=== PATIENT | female | born 1980 | race Two or more races ===

== ENCOUNTER 2016-09-06 10:01 | Emergency (ER) | payer BC, OTHER ==
[2016-09-06 10:06] VITALS: BMI 30.2
[2016-09-06] MEDS ORDERED: LORAZEPAM CARPU-JECT 2 MG/ML DISP.SYRIN IVPUSH ONE ×2 (10:45→11:05)
[2016-09-06] MEDS ORDERED: FOLIC ACID INJECTION - 1 MG, THIAMINE HCL 100 MG, MULTIVIT INJECTION ADULT 10 ML in SOD... IVPB ONE (10:45)
[2016-09-06] MEDS ORDERED: LORAZEPAM CARPU-JECT 2 MG/ML DISP.SYRIN ONE (11:15)
--- NOTE | 2016-09-06 12:11 | PDOC ---
History of Present Illness - General Chief Complaint: Alcohol intoxication Stated Complaint: DETOX Time Seen by Provider: 09/06/16 10:27 History Source: Patient, Spouse - History of Present Illness Initial Comments: 09/06/16 12:25 36-year-old female presents to the emergency room with complaints of alcohol which are all including generalized body shakes and irritability. Patient states for the past 2 years has been drinking approximately 10-15 shots of vodka on a daily basis to the point now that she is not able to function at work and chooses to drink versus eat. Patient also states history of anxiety and takes Prozac on a daily basis. Patient denies other drug use and denies any homicidal or suicidal ideation. Patient does state history of epilepsy but is on no medication and states for the past 2 years seizures have increased secondary to alcohol abuse n medication for withdrawals. Timing/Duration: getting worse Severity: moderate Associated Symptoms: reports: loss of appetite, seizure, weakness Past History - Past Medical History Allergies/Adverse Reactions: Allergies Allergy/AdvReac Type Severity Reaction Status Date / Time amoxicillin [Amoxicillin] AdvReac Mild Verified 09/06/16 10:07 Penicillins AdvReac Mild Verified 09/06/16 10:07 Home Medications: Ambulatory Orders Fluoxetine HCl [Prozac -] 40 mg PO DAILY 09/26/15 Albuterol Sulfate Inhaler - [Ventolin Hfa Inhaler -] 2 inh PO Q4H PRN #1 inh 03/09 Asthma: Yes Cancer: Yes (CERVICAL) COPD: Yes Psychiatric Problems: Yes (anxiety) - Surgical History Abdominal Surgery: Yes (HERNIA) - Immunization History Immunization Up to Date: Yes - Psycho/Social/Smoking Cessation Hx Anxiety: Yes Suicidal Ideation: No Smoking Status: Yes Smoking History: Current every day smoker Have you smoked in the past 12 months: Yes Number of Cigarettes Smoked Daily: 20 Information on smoking cessation initiated: No 'Breaking Loose' booklet given: 07/26/15 Hx Alcohol Use: Yes Drug/Substance Use Hx: Yes Substance Use Type: Alcohol, Prescribed Hx Substance Use Treatment: No Patient Lives Alone: No Lives with/in: spouse/SO Review of Systems - Review of Systems Able to Perform ROS?: Yes Constitutional: Yes: Loss of Appetite, Weakness HEENTM: No: Symptoms Reported Respiratory: No: Symptoms reported Cardiac (ROS): No: Symptoms Reported ABD/GI: Yes: Poor Appetite, Poor Fluid Intake : No: Symptoms Reported Musculoskeletal: Yes: Muscle Weakness Integumentary: No: Symptoms Reported Neurological: Yes: Tremors Endocrine: No: Symptoms Reported Hematologic/Lymphatic: No: Symptoms Reported *Physical Exam - Vital Signs Last Vital Signs Temp Pulse Resp BP Pulse Ox 98 F 74 20 117/82 97 09/06/16 10:03 09/06/16 11:10 09/06/16 11:10 09/06/16 11:10 09/06/16 11:10 - Physical Exam General Appearance: Yes: Nourished, Appropriately Dressed, Alcohol on Breath. No: Intoxicated HEENT: positive: EOMI, HELEN, TMs Normal, Pharynx Normal Neck: positive: Supple Respiratory/Chest: positive: Lungs Clear, Normal Breath Sounds. negative: Respiratory Distress, Accessory Muscle Use Cardiovascular: positive: Regular Rhythm, Regular Rate. negative: Murmur Gastrointestinal/Abdominal: positive: Soft. negative: Tenderness Integumentary: positive: Normal Color, Warm, Moist Neurologic: positive: Motor Strength 5/5 ( ambulatory). negative: Normal Mood/ Affect (anxious) Heart Score/ECG Review - ECG Intrepretation Rhythm: Regular Rhythm (76 normal sinus. No acute findings.) ED Treatment Course - LABORATORY CBC & Chemistry Diagram: 09/06/16 11:07 09/06/16 11:07 - Medications Given in the ED: ED Medications Discontinued Medications Generic Name Dose Route Start Last Admin Trade Name Freq PRN Reason Stop Dose Admin Folic Acid 1 mg/ Thiamine HCl 1,000 mls @ 1,000 mls/hr 09/06/16 10:45 09/06/16 11:45 100 mg/ Multivitamins/Minerals IVPB 09/06/16 11:44 1,000 mls/hr 10 ml/ Sodium Chloride ONCE ONE Administration Lorazepam 0.5 mg 09/06/16 10:45 09/06/16 11:20 Ativan Injection - IVPUSH 09/06/16 10:46 Not Given ONCE ONE Lorazepam 2 mg 09/06/16 11:05 09/06/16 11:07 Ativan Injection - IVPUSH 09/06/16 11:06 2 mg ONCE ONE Administration Medical Decision Making - Medical Decision Making 09/06/16 11:33 [facility] on-call detox for alcohol abuse the past 2 years. Patient states it never went to rehabilitation but states his drinking approximately 10-15 shots of vodka daily and is now causing her to not function including work and eating. Fianc states patient has had more frequent seizures over the past 2 years and prior to that had no seizures for approximately 6 years. Patient states was going to go to [facility] tomorrow but due to the tremors and irritability he decided come to the ER. Patient with normal vital signs with no asterixis noted. Patient ordered for labs, Ativan, banana bag and urine including drug toxicology 09/06/16 12:34 Called by a nurse to evaluate patient was having foaming at the mouth with eye rolling. Patient was not found to be rigid or generalized tremors. Patient ordered for 2 mg of Ativan. Vital signs stable. Suction at bedside. Fianc at bedside. 09/06/16 14:00 Laboratory Tests 09/06/16 09/06/16 09/06/16 11:07 11:07 11:07 WBC 10.5 H Hgb 14.1 Hct 43.8 Plt Count 331 Neutrophils % 74.1 D Sodium 143 Potassium 3.9 Chloride 104 Carbon Dioxide 25 Anion Gap 14 BUN 11 D Creatinine 0.7 Creat Clearance w eGFR > 60 Random Glucose 80 D Calcium 9.2 Magnesium 2.2 Total Bilirubin 0.2 D AST 59 H D ALT 50 D Urine Ketones Negative Urine Nitrite Negative Urine HCG, Qual Negative Cocaine Screen Alcohol, Quantitative 09/06/16 09/06/16 11:07 11:07 WBC Hgb Hct Plt Count Neutrophils % Sodium Potassium Chloride Carbon Dioxide Anion Gap BUN Creatinine Creat Clearance w eGFR Random Glucose Calcium Magnesium Total Bilirubin AST ALT Urine Ketones Urine Nitrite Urine HCG, Qual Cocaine Screen Negative Alcohol, Quantitative 290.2 H* 09/06/16 14:01 Selected Entries 09/06/16 11:10 Pulse Rate [ 74 Left Radial] Respiratory 20 Rate Blood Pressure 117/82 [Left Arm] O2 Sat by Pulse 97 Oximetry (%) Case discussed with Dr. Favian kruger at detox and accepted patient. patient currently groggy and responsive to stimuli repeat vital stable. 09/06/16 16:14 Selected Entries 09/06/16 15:44 Pulse Rate [ 105 H Left Radial] Respiratory 16 Rate Blood Pressure 108/70 [Left Arm] O2 Sat by Pulse 99 Oximetry (%) Patient alert and conversive with fiance at bedside and is ready to go to [facility]. *DC/Admit/Observation/Transfer Diagnosis at time of Disposition: Alcohol intoxication, Alcohol abuse, Seizure - Discharge Dispostion Disposition: I.P. ALCOHOL/SUBS ABUSE REHAB Condition at time of disposition: Good - Patient Instructions Printed Discharge Instructions: DI for Alcohol Abuse Additional Instructions: Please follow recommendations of the program and utilize all resources available to you.
[2016-09-06 12:35] LABS: BASOPHIL 0.9 % (0-2.0); EOSINOPHIL 1.8 % (0-4.5); MCH 29.9 pg (25.7-33.7); MCHC 32.3 g/dl (32.0-36.0); MEAN CELL VOLUME 92.5 fl (80-96); MEAN PLT VOLUME 8.6 fl (7.5-11.1); NEUTROPHILS 74.1 % (42.8-82.8); PLATELET COUNT 331 K/MM3 (134-434); WHITE BLOOD COUNT 10.5 K/mm3 (4.0-10.0)
[2016-09-06 12:40] LABS: URINE APPEARANCE CLEAR; URINE BILIRUBIN NEGATIVE (NEGATIVE); URINE BLOOD NEGATIVE (NEGATIVE); URINE COLOR COLORLESS; URINE GLUCOSE (UA) NEGATIVE (NEGATIVE); URINE KETONE NEGATIVE (NEGATIVE); URINE LEUK ESTERASE NEGATIVE (NEGATIVE); URINE NITRITE NEGATIVE (NEGATIVE); URINE PROTEIN NEGATIVE (NEGATIVE); URINE UROBILINOGEN NEGATIVE E.U./dl (0.2-1.0)
[2016-09-06 13:01] LABS: ALBUMIN 4.2 g/dl (3.4-5.0); ALK PHOS 74 U/L (45-117); ANION GAP 14 (8-16); BILIRUBIN,TOTAL 0.2 mg/dL (0.2-1.0); CALCIUM 9.2 mg/dL (8.5-10.1); CO2 25 mmol/L (21-32); COCKROFT - GAULT 109.2335; CREATININE 0.7 mg/dL (0.55-1.02); GLUCOSE,RANDOM 80 mg/dL (74-106); MAGNESIUM 2.2 mg/dL (1.8-2.4); SGOT/AST 59 U/L (15-37); SGPT/ALT 50 U/L (12-78); TOT PROT 8.1 g/dl (6.4-8.2)
[2016-09-06 13:22] LABS: URINE MARIJUANA THC NEGATIVE ng/ml (CUTOFF=50)
[2016-09-06 16:28] VITALS: BP 114/93; PULSE 78; TEMP 98.6
--- NOTE | 2016-09-06 17:06 | EKG ---
Test Reason : Blood Pressure : / mmHG Vent. Rate : 078 BPM Atrial Rate : 078 BPM P-R Int : 124 ms QRS Dur : 084 ms QT Int : 412 ms P-R-T Axes : 050 064 042 degrees QTc Int : 469 ms NORMAL SINUS RHYTHM NORMAL ECG WHEN COMPARED WITH ECG OF 26-SEP-2015 20:49, NO SIGNIFICANT CHANGE WAS FOUND Confirmed by SERGIO QUIJANO MD ([id number]) on 09/06/2016 5:05:50 PM Referred By: Confirmed By:SERGIO QUIJANO MD
== END 2016-09-06 16:29 | disposition other institution (70) ==
LOC: JER 10:01
PROC: 3E033GC Introduction of Other Therapeutic Substance into Peripheral Vein, Percutaneous Approach (ICD-10-PCS; principal; 2016-09-06)
PROC: 3E033NZ Introduction of Analgesics, Hypnotics, Sedatives into Peripheral Vein, Percutaneous Approach (ICD-10-PCS; 2016-09-06)
DX: F10.220 Alcohol dependence with intoxication, uncomplicated (principal); G40.509 Epileptic seizures related to external causes, not intractable, without status epilepticus; F41.9 Anxiety disorder, unspecified; J44.9 Chronic obstructive pulmonary disease, unspecified; F17.210 Nicotine dependence, cigarettes, uncomplicated; Z85.41 Personal history of malignant neoplasm of cervix uteri; Y90.8 Blood alcohol level of 240 mg/100 ml or more
CPT/HCPCS: 36415; 80053; 80307; 81003; 83735; 84703; 85025; 93005; 93010; 99284-25

== ENCOUNTER 2016-09-06 18:40 | Inpatient (IN) | payer OTHER ==
[2016-09-06 19:00] VITALS: BMI 29.8
--- NOTE | 2016-09-06 19:20 | HP ---
CIWA Score - CIWA Score Nausea/Vomitin-Mild Nausea/No Vomiting Muscle Tremors: 4-Moderate,w/Arms Extend Anxiety: 4-Mod. Anxious/Guarded Agitation: 4-Moderately Restless Paroxysmal Sweats: 1-Minimal Palms Moist Orientation: 0-Oriented Tacttile Disturbances: 0-None Auditory Disturbances: 0-None Visual Disturbances: 0-None Headache: 1-Very Mild CIWA-Ar Total Score: 15 Admission ROS [facility] - HPI Chief Complaint: WITHDRAWAL SX Allergies/Adverse Reactions: Allergies Allergy/AdvReac Type Severity Reaction Status Date / Time amoxicillin [Amoxicillin] AdvReac Mild Verified 09/06/16 19:10 Penicillins AdvReac Mild Verified 09/06/16 19:10 History of Present Illness: 36 YEARS OLD FEMALE WITH LONG HISTORY OF ALCOHOL NICOTINE DEPENDENCE HAS ASTHMA ALCOHOL WITHDRAWAL RELATED SEIZURE DEPRESSION IS ADMITTED TO DETOX Exam Limitations: No Limitations - Ebola screening Have you traveled outside of the country in the last 21 days: No Have you had contact with anyone from an Ebola affected area: No Have you been sick,other than usual withdrawal symptoms: No Do you have a fever: No - Review of Systems Constitutional: Chills, Changes in sleep, Weight Stable EENT: reports: No Symptoms Reported Respiratory: reports: Cough Cardiac: reports: No Symptoms Reported GI: reports: Nausea, Poor Fluid Intake, Abdominal cramping : reports: No Symptoms Reported Musculoskeletal: reports: No Symptoms Reported Integumentary: reports: No Symptoms Reported Neuro: reports: Seizure (FIRST EPISODE 2006 LAST EPISODE 09/06/16 TREATED AT ER REFERRED TO [facility]), Tremors Endocrine: reports: No Symptoms Reported Hematology: reports: No Symptoms Reported Psychiatric: reports: Judgement Intact, Orientated x3, Depressed Other Systems: Reviewed and Negative Patient History - Patient Medical History Hx Anemia: No Hx Asthma: Yes Hx Chronic Obstructive Pulmonary Disease (COPD): Yes Hx Cancer: Yes (CERVICAL 2006 2012 ) Hx Cardiac Disorders: No Hx Congestive Heart Failure: No Hx Hypertension: No Hx Pacemaker: No HX Cerebrovascular Accident: No Hx Seizures: Yes (09/06/16) Hx Dementia: No Hx Diabetes: No Hx Gastrointestinal Disorders: No Hx Liver Disease: No Hx Genitourinary Disorders: No Hx Sexually Transmitted Disorders: No Hx Renal Disease (ESRD): No Hx Thyroid Disease: No Hx Human Immunodeficiency Virus (HIV): No Hx Hepatitis C: No Hx Depression: Yes Hx Suicide Attempt: No Hx Bipolar Disorder: No Hx Schizophrenia: No - Patient Surgical History Past Surgical History: Yes Hx Neurologic Surgery: No Hx Cataract Extraction: No Hx Cardiac Surgery: No Hx Lung Surgery: No Hx Breast Surgery: No Hx Breast Biopsy: No Hx Abdominal Surgery: Yes ([id number]) Hx Appendectomy: No Hx Cholecystectomy: No Hx Genitourinary Surgery: No Hx Section: No Hx Orthopedic Surgery: No Hx Hysterectomy: No Other Surgical History: btl, cone surgery Anesthesia Reaction: No - PPD History Previous Implant?: Yes Documented Results: Negative w/o proof Implanted On Prior [facility] Admission?: No PPD to be Administered?: Yes - Reproductive History Patient is a Female of Child Bearing Age (11 -55 yrs old): Yes Last Menstrual Period: 08/26/16 Patient : No - Smoking Cessation Smoking history: Current every day smoker Have you smoked in the past 12 months: Yes Aproximately how many cigarettes per day: 20 Cigars Per Day: 0 Hx Chewing Tobacco Use: No Initiated information on smoking cessation: Yes 'Breaking Loose' booklet given: 09/06/16 - Substance & Tx. History Hx Alcohol Use: Yes Hx Substance Use: No Substance Use Type: Alcohol Hx Substance Use Treatment: Yes - Substances Abused Alcohol Route: Oral Frequency: Daily Amount used: 30 OZ VOLKA Age of first use: 34 Date of Last Use: 09/06/16 Family Disease History - Family Disease History Family Disease History: Diabetes: Mother (NO CONTACT), Heart Disease: Father ( ), Mother, Respiratory: Mother, Sister, Other: Father, Mother, Brother ( NO CONTACT) Admission Physical Exam [facility] - Physical General Appearance: Yes: Appropriately Dressed, Moderate Distress, Alcohol on Breath, Intoxicated (TREATED AT [facility] 09/06/16), Tremorous, Irritable, Sweating HEENTM: Yes: Hearing grossly Normal, Normal ENT Inspection, Normocephalic, Normal Voice Respiratory: Yes: Chest Non-Tender, No Respiratory Distress, No Accessory Muscle Use, Wheezing Neck: Yes: Supple, Trachea in good position Breast: Yes: Breasts Symetrical Cardiology: Yes: Regular Rhythm, S1, S2, Tachycardia Abdominal: Yes: Non Tender, Soft Genitourinary: Yes: Within Normal Limits Back: Yes: Normal Inspection Musculoskeletal: Yes: full range of Motion, Gait Steady Extremities: Yes: Normal Range of Motion, Non-Tender, Tremors Neurological: Yes: Fully Oriented, Alert, Motor Strength 5/5, Normal Response, Depressed Affect Integumentary: Yes: Warm Lymphatic: Yes: Within Normal Limits - Diagnostic (1) Asthma Current Visit: Yes Status: Chronic Qualifiers: Asthma severity: mild persistent Asthma complication type: with status asthmaticus Qualified Code(s): J45.32 - Mild persistent asthma with status asthmaticus (2) Seizure Current Visit: Yes Status: Inactive Comment: ALCOHOL WITHDRAWAL RELATED LAST EPISODE 09/06/16 (3) Alcohol dependence with uncomplicated withdrawal Current Visit: Yes Status: Acute (4) Nicotine dependence Current Visit: Yes Status: Acute Qualifiers: Nicotine product type: cigarettes Substance use status: in withdrawal Qualified Code(s): F17.213 - Nicotine dependence, cigarettes, with withdrawal (5) COPD (chronic obstructive pulmonary disease) Current Visit: Yes Status: Chronic Qualifiers: COPD type: emphysema Emphysema type: other Qualified Code(s): J43.8 - Other emphysema (6) Cervical cancer Current Visit: Yes Status: Resolved Qualifiers: Malignant neoplasm of cervix location: unspecified location Qualified Code(s): C53.9 - Malignant neoplasm of cervix uteri, unspecified Comment: 2013 Cleared for Admission S - Detox or Rehab [facility] Level of Care: Medically Managed Detox Regimen/Protocol: Librium [facility] Breath Alcohol Content Breath Alcohol Content: 0.105 Urine Pregancy Test - Result Urine Test Results: Negative- NO Line Present Urine Drug Screen - Results Drug Screen Negative: No Urine Drug Screen Results: BZO-Benzodiazepines
[2016-09-06] MEDS ORDERED: chlordiazePOXIDE HCL 25 MG CAPSULE PO PRN (19:24)
[2016-09-06] MEDS ORDERED: chlordiazePOXIDE HCL 25 MG CAPSULE PO ONE (19:24)
[2016-09-06] MEDS ORDERED: MAGNESIUM CITRATE 300 ML BOTTLE PO PRN (19:24)
[2016-09-06] MEDS ORDERED: MAG HYDROX/AL HYDROX/SIMETH 30 ML UNIT-DOSE CUP PO PRN (19:24)
[2016-09-06] MEDS ORDERED: LOPERAMIDE HCL 2 MG CAPSULE PO PRN (19:24)
[2016-09-06] MEDS ORDERED: P-EPHED 60MG/TRIPROLIDI 2.5MG TABLET PO PRN (19:24)
[2016-09-06] MEDS ORDERED: MENTHOL/PHENOL 1 EACH UD MM PRN (19:24)
[2016-09-06] MEDS ORDERED: ACETAMINOPHEN 325 MG TABLET (FP) PO PRN (19:24)
[2016-09-06] MEDS ORDERED: diphenhydrAMINE HCL 50 MG CAPSULE PO PRN (19:24)
[2016-09-06] MEDS ORDERED: hydrOXYzine PAMOATE 50 MG CAPSULE (FP) PO PRN (19:24)
[2016-09-06] MEDS ORDERED: NICOTINE POLACRILEX 4 MG GUM BC PRN (19:24)
[2016-09-06] MEDS ORDERED: IBUPROFEN 400 MG TABLET (FP) PO PRN (19:24)
[2016-09-06] MEDS ORDERED: MAGNESIUM HYDROX 2400MG/30ML ORAL SUSPENSION 30 ML CUP PO PRN (19:24)
[2016-09-06] MEDS ORDERED: guaiFENesin/D-METHORPHAN HB 10 ML UNIT-DOSE CUPS PO PRN (19:24)
[2016-09-06] MEDS ORDERED: ALBUTEROL SO4 2.5/IPRATROPIUM 0.5 INH SOL 3 ML VIAL.NEB. NEB PRN (19:28)
[2016-09-06] MEDS ORDERED: ALBUTEROL SO4 6.7 GM HFA INHALER IH PRN (19:28)
[2016-09-06] MEDS ORDERED: THIAMINE HCL 100 MG TABLET (FP) PO SCH (22:00)
[2016-09-06] MEDS: chlordiazePOXIDE HCL 25 MG CAPSULE PO SCH (22:36)
[2016-09-06 23:32] LABS: URINE APPEARANCE CLEAR; URINE BILIRUBIN NEGATIVE (NEGATIVE); URINE BLOOD NEGATIVE (NEGATIVE); URINE COLOR LTYELLOW; URINE GLUCOSE (UA) NEGATIVE (NEGATIVE); URINE KETONE TRACE (NEGATIVE); URINE LEUK ESTERASE NEGATIVE (NEGATIVE); URINE NITRITE NEGATIVE (NEGATIVE); URINE PROTEIN NEGATIVE (NEGATIVE); URINE UROBILINOGEN NEGATIVE E.U./dl (0.2-1.0)
[2016-09-07] MEDS: chlordiazePOXIDE HCL 25 MG CAPSULE PO SCH (05:53)
[2016-09-07 06:24] VITALS: TEMP 98.2
--- NOTE | 2016-09-07 09:21 | DS ---
[facility] Detox Discharge Summary Admission Date: 09/06/16 Discharge Date: 09/07/16 - History Present History: Alcohol Dependence - Physical Exam Results Vital Signs: Vital Signs Temperature 98.2 F 09/07/16 06:24 Pulse Rate 96 H 09/07/16 06:24 Respiratory Rate 16 09/07/16 06:24 Blood Pressure 124/81 09/07/16 06:24 O2 Sat by Pulse Oximetry (%) - Treatment Hospital Course: Detox Protocol Followed - Medication Discharge Medications: Ambulatory Orders Fluoxetine HCl [Prozac -] 40 mg PO DAILY 09/26/15 Albuterol Sulfate Inhaler - [Ventolin Hfa Inhaler -] 2 inh PO Q4H PRN #1 inh 03/09 - Diagnosis (1) Alcohol dependence with uncomplicated withdrawal Current Visit: Yes Status: Chronic (2) Nicotine dependence Current Visit: Yes Status: Chronic Qualifiers: Nicotine product type: cigarettes Substance use status: in withdrawal Qualified Code(s): F17.213 - Nicotine dependence, cigarettes, with withdrawal (3) Asthma Current Visit: Yes Status: Chronic Qualifiers: Asthma severity: mild persistent Asthma complication type: with status asthmaticus Qualified Code(s): J45.32 - Mild persistent asthma with status asthmaticus (4) COPD (chronic obstructive pulmonary disease) Current Visit: Yes Status: Chronic Qualifiers: Emphysema type: unspecified Qualified Code(s): - (5) Cervical cancer Current Visit: Yes Status: Resolved Qualifiers: Malignant neoplasm of cervix location: unspecified location Qualified Code(s): C53.9 - Malignant neoplasm of cervix uteri, unspecified (6) Seizure Current Visit: Yes Status: Inactive - AMA Did Patient Leave Against Medical Advice: Yes (wants to leave early )
--- NOTE | 2016-09-07 09:51 | CONSULT ---
[facility] Psychiatric Consult - Data Date of interview: 09/07/16 Admission source: [facility] Identifying data: This is 36 years old female with no psychiatic hospitalization hisotry intoxicated with: Alcohol and Nicotine Substance Abuse History: Smoking Cessation. Smoking history: Current every day smoker. Have you smoked in the past 12 months: Yes. Aproximately how many cigarettes per day: 20. Cigars Per Day: 0. Hx Chewing Tobacco Use: No. Initiated information on smoking cessation: Yes. 'Breaking Loose' booklet given : 09/06/16. - Substance & Tx. History. Hx Alcohol Use: Yes. Hx Substance Use : No. Substance Use Type: Alcohol. Hx Substance Use Treatment: Yes. - Substances Abused. Alcohol. Route: Oral. Frequency: Daily. Amount used: 30 OZ VOLKA. Age of first use: 34. Date of Last Use: 09/06/16 Medical History: Asthma, COPD, Cervical Cancer History Psychiatric History: Patioetreprots history of depression and anxiety, reprots taking prior to admission: 'Prozac 40mg poqd Physical/Sexual Abuse/Trauma History: Denies Additional Comment: Prozac 40mg poqd Mental Status Exam - Mental Status Exam Alert and Oriented to: Person Patient Appearance: Unkempt Mood: Sad Affect: Mood Congruent Patient Behavior: Cooperative Speech Pattern: Appropriate Voice Loudness: Mildly Loud Thought Process: Goal Oriented Thought Disorder: Being Controlled Hallucinations: Denies Suicidal Ideation: Denies Homicidal Ideation: Denies Insight/Judgement: Fair Sleep: Difficulty falling asleep Appetite: Weight gain Muscle strength/Tone: Normal Gait/Station: Normal Additional Comments: 'Prozac 40mg poqd Psychiatric Findings - Problem List ([place] 1, 2,3) (1) Alcohol dependence with uncomplicated withdrawal Current Visit: Yes Status: Chronic (2) COPD (chronic obstructive pulmonary disease) Current Visit: Yes Status: Chronic Qualifiers: Emphysema type: unspecified (3) Nicotine dependence Current Visit: Yes Status: Chronic Qualifiers: Nicotine product type: cigarettes Substance use status: in withdrawal Qualified Code(s): F17.213 - Nicotine dependence, cigarettes, with withdrawal (4) Alcohol abuse Current Visit: No Status: Acute (5) Alcohol intoxication Current Visit: No Status: Acute (6) Drug-induced mood disorder Current Visit: Yes Status: Acute - Initial Treatment Plan Initial Treatment Plan: 'Prozac 40mg poqd
[2016-09-07 10:00] VITALS: BP 129/68; PULSE 86
[2016-09-07] MEDS ORDERED: PRENATAL VITAMINS W/ FOLIC ACID TABLET (FP) PO SCH (10:00)
[2016-09-07] MEDS ORDERED: NICOTINE 21 MG/24 HOURS TOPICAL PATCH TD SCH (10:00)
[2016-09-07 10:07] LABS: MCH 30.2 pg (25.7-33.7); MCHC 32.5 g/dl (32.0-36.0); MEAN CELL VOLUME 92.8 fl (80-96); MEAN PLT VOLUME 8.7 fl (7.5-11.1); PLATELET COUNT 266 K/MM3 (134-434); RDW 17.6 % (11.6-15.6); WHITE BLOOD COUNT 7.1 K/mm3 (4.0-10.0)
--- NOTE | 2016-09-07 10:25 | EKG ---
Test Reason : Blood Pressure : / mmHG Vent. Rate : 074 BPM Atrial Rate : 074 BPM P-R Int : 110 ms QRS Dur : 082 ms QT Int : 398 ms P-R-T Axes : 042 070 048 degrees QTc Int : 441 ms SINUS RHYTHM WITH SINUS ARRHYTHMIA WITH SHORT ND OTHERWISE NORMAL ECG WHEN COMPARED WITH ECG OF 06-SEP-2016 11:10, NO SIGNIFICANT CHANGE WAS FOUND Confirmed by IZZY SANDOVAL, JESSICA ([id number]) on 09/07/2016 10:25:20 AM Referred By: Yusuf Maria Confirmed By:JESSICA MAGANA MD
[2016-09-07 10:57] LABS: ALBUMIN 3.1 g/dl (3.4-5.0); ALK PHOS 57 U/L (45-117); ANION GAP 8 (8-16); BILIRUBIN,TOTAL 0.5 mg/dL (0.2-1.0); CALCIUM 8.7 mg/dL (8.5-10.1); CO2 28 mmol/L (21-32); COCKROFT - GAULT 125.6215; CREATININE 0.6 mg/dL (0.55-1.02); GLUCOSE,RANDOM 86 mg/dL (74-106); SGOT/AST 35 U/L (15-37); SGPT/ALT 34 U/L (12-78); TOT PROT 6.1 g/dl (6.4-8.2)
[2016-09-07] MEDS ORDERED: chlordiazePOXIDE HCL 25 MG CAPSULE PO SCH (23:00)
[2016-09-08] MEDS ORDERED: chlordiazePOXIDE 5 MG CAPSULE PO SCH (23:00)
[2016-09-09] MEDS ORDERED: chlordiazePOXIDE HCL 10 MG CAPSULE PO SCH (23:00)
== END 2016-09-07 10:05 | disposition left against medical advice (07) | DRG 770 ==
LOC: YASAS 18:40 → Y6N 19:20
PROVIDERS: ADMIT Internal Medicine Addiction Medicine; ATTEND Internal Medicine Addiction Medicine
PROC: HZ2ZZZZ Detoxification Services for Substance Abuse Treatment (ICD-10-PCS; principal; 2016-09-07)
DX: F10.230 Alcohol dependence with withdrawal, uncomplicated (principal); F17.210 Nicotine dependence, cigarettes, uncomplicated; F10.24 Alcohol dependence with alcohol-induced mood disorder; G40.509 Epileptic seizures related to external causes, not intractable, without status epilepticus; C53.9 Malignant neoplasm of cervix uteri, unspecified; J45.32 Mild persistent asthma with status asthmaticus; Z59.0 Homelessness
CPT/HCPCS: 36415; 80053; 81003; 85027; 86593; 93005; 93010

== ENCOUNTER 2016-11-24 23:01 | Emergency (ER) | payer BC, OTHER ==
[2016-11-24 23:13] VITALS: BP 142/85; PULSE 85; TEMP 98.2; BMI 28.1
== END 2016-11-25 02:22 | disposition left against medical advice (07) ==
LOC: JER 23:01
DX: Z53.21 Procedure and treatment not carried out due to patient leaving prior to being seen by health care provider (principal)
CPT/HCPCS: 99281-25

== ENCOUNTER 2017-01-18 15:39 | Emergency (ER) | payer BC, OTHER ==
[2017-01-18 15:53] VITALS: BP 107/65; PULSE 77; TEMP 98.8; BMI 28.1
--- NOTE | 2017-01-18 16:25 | PDOC ---
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 States has sustained pain but past few days has progressively worsened. Is able to make a fist but is very painful to flex and extend fourth and fifth digits of right hand. Occurred: reports: other (1 month) Severity: reports: moderate Pain Location: reports: upper extremity (right hand ) Modifying Factors: improves with: None Associated Symptoms (Fall): denies symptoms Past History - Travel Traveled outside of the country in the last 30 days: No Close contact w/someone who was outside of country & ill: No - Past Medical History Allergies/Adverse Reactions: Allergies Allergy/AdvReac Type Severity Reaction Status Date / Time amoxicillin [Amoxicillin] AdvReac Mild Verified 01/18/17 15:53 Penicillins AdvReac Mild Verified 01/18/17 15:53 Home Medications: Ambulatory Orders Fluoxetine HCl [Prozac -] 40 mg PO DAILY 09/26/15 Albuterol Sulfate Inhaler - [Ventolin Hfa Inhaler -] 2 inh PO Q4H PRN #1 inh 03/09 Albuterol Sulfate Inhaler - [Ventolin HFA Inhaler -] 2 puff IH Q4H PRN #1 inhaler 09/07/16 Anemia: No Asthma: Yes Cancer: Yes (CERVICAL 2006 2012 ) Cardiac Disorders: No CVA: No COPD: Yes CHF: No Dementia: No Diabetes: No GI Disorders: No Disorders: No HTN: No Kidney Stones: No Liver Disease: No Psychiatric Problems: Yes (anxiety) Seizures: Yes (09/06/16) Thyroid Disease: No - Surgical History Abdominal Surgery: Yes ([id number]) Appendectomy: No Cardiac Surgery: No Cholecystectomy: No Lung Surgery: No Neurologic Surgery: No Orthopedic Surgery: No - Reproductive History PID: No - Immunization History Immunization Up to Date: Yes - Suicide/Smoking/Psychosocial Hx Smoking Status: Yes Smoking History: Current every day smoker Have you smoked in the past 12 months: Yes Number of Cigarettes Smoked Daily: 15 Cigars Per Day: 0 Information on smoking cessation initiated: Yes 'Breaking Loose' booklet given: 01/18/17 Hx Alcohol Use: Yes (SOCIAL) Drug/Substance Use Hx: No Substance Use Type: None Hx Substance Use Treatment: Yes Trauma Specific PMHX - Complaint Specific PMHX Arthritis: No Back Injury: No Neck Injury: No Review of Systems - Review of Systems Able to Perform ROS?: Yes Is the patient limited [place] proficient: Yes Constitutional: Yes: See HPI. No: Symptoms Reported, Malaise HEENTM: Yes: See HPI. No: Symptoms Reported Musculoskeletal: Yes: Symptoms Reported, See HPI, Joint Swelling Integumentary: Yes: See HPI. No: Symptoms Reported, Bruising All Other Systems: Reviewed and Negative *Physical Exam - Vital Signs Last Vital Signs Temp Pulse Resp BP Pulse Ox 98.8 F 77 20 107/65 100 01/18/17 15:50 01/18/17 15:50 01/18/17 15:50 01/18/17 15:50 01/18/17 15:50 - Physical Exam General Appearance: Yes: Nourished, Appropriately Dressed, Apparent Distress, Mild Distress HEENT: positive: HELEN, Normal ENT Inspection, TMs Normal, Pharynx Normal Extremity: positive: Normal Capillary Refill. negative: Normal Inspection, Normal Range of Motion (did range of motion difficult to make fist, has some minor deviation to her right fifth digit at MCP where area of tenderness is. 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 Patient placed in a wrist immobilizer, instructed to elevate ice and follow up with Orth O for further evaluation *DC/Admit/Observation/Transfer Diagnosis at time of Disposition: Hand pain, right - Discharge Dispostion Disposition: HOME Condition at time of disposition: Stable Admit: No - Referrals Referrals: Marilin Nugent [Primary Care Provider] - Anton Kemp MD [Staff Physician] - - Patient Instructions Printed Discharge Instructions: DI for Hand Injury Additional Instructions: Rest, ice to area on and off for 15 minutes 4-6 times a day Avoid heavy lifting or exercise until pain and swelling is resolved or until further directed Keep area highly elevated to reduce swelling Use splints/Chente wrap as directed Followup with orthopedist in one to 2 days if not improving, if significantly improved may wait one week for followup with orthopedist May use ibuprofen 2-200 mg tablets every 6 hours as needed for pain - Post Discharge Activity Forms/Work/School Notes: Back to Work
== END 2017-01-18 17:05 | disposition home or self-care (01) ==
LOC: JERFT 15:39
DX: M79.641 Pain in right hand (principal); G40.909 Epilepsy, unspecified, not intractable, without status epilepticus; J45.909 Unspecified asthma, uncomplicated; J44.9 Chronic obstructive pulmonary disease, unspecified; F41.9 Anxiety disorder, unspecified; Z85.41 Personal history of malignant neoplasm of cervix uteri; F17.210 Nicotine dependence, cigarettes, uncomplicated; W22.8XXA Striking against or struck by other objects, initial encounter; Y93.89 Activity, other specified; Y92.89 Other specified places as the place of occurrence of the external cause; Y99.8 Other external cause status
CPT/HCPCS: 73130-TC-RT; 99281-25

== ENCOUNTER 2017-04-06 10:17 | Emergency (ER) | payer BC, OTHER ==
[2017-04-06 10:40] VITALS: BP 124/84; PULSE 79; TEMP 98; BMI 24.8
[2017-04-06] MEDS ORDERED: KETOROLAC TROMETHAMINE 60 MG/2 ML VIAL IM ONE (12:01)
[2017-04-06] MEDS ORDERED: diazePAM 5 MG TABLET PO ONE (12:01)
[2017-04-06] MEDS ORDERED: KETOROLAC TROMETHAMINE 60 MG/2 ML VIAL ONE (12:05)
[2017-04-06] MEDS ORDERED: diazePAM 5 MG TABLET ONE (12:06)
--- NOTE | 2017-04-06 12:13 | PDOC ---
History of Present Illness - General Chief Complaint: Pain Stated Complaint: BACK/NECK PAIN Time Seen by Provider: 04/06/17 11:43 History Source: Patient Exam Limitations: No Limitations - History of Present Illness Initial Comments: 04/06/17 12:11 CHIEF COMPLAINT: Left lateral neck pain and upper shoulder pain HISTORY OF PRESENT ILLNESS: Patient is an otherwise healthy 36-year-old female presents for evaluation of left lateral neck pain and left upper shoulder pain for 2 weeks. Patient denies injury, denies lifting anything heavy, reports that she woke up with the pain and Freddy has not been helping her. Patient does report not sleeping with a pillow. [ Nonradiating pain, no neurosensory deficits, no bowel or bladder difficulty incontinence or urinary retention, no saddle anesthesia, no footdrop. No history of IVDU or history of cancer. ] REVIEW OF SYSTEMS: GENERAL: Afebrile, denies any weakness RESPIRATORY: No cough, wheezing, or hemoptysis. CARDIAC: No chest pain or shortness of breath MUSCULOSKELETAL: Left lateral neck pain and shoulder pain, no spinal point tenderness SKIN : No erythema, no bruising, no deformity. GI/: Denies any abdominal pain, no urinary difficulty, incontinence or urinary retention. RECTAL: Denies any difficulty this A.m. NEUROLOGICAL: Denies any numbness or tingling. No neurosensory deficits. PHYSICAL EXAM: GENERAL: The patient is awake, alert, and fully oriented, in no acute distress. RESPIRATORY: Lungs clear bilaterally, no rhonchi wheezes or crackles CARDIAC: S1-S2 audible, no murmur rub or gallop MUSCULOSKELETAL: Pain to left lateral neck and left lateral shoulder reproducible, nonradiating, no tingling or sensory deficit. Less than 2 second cap refill, +4 popliteal and pedal pulses. GI/: Abdomen soft, nontender, nondistended. No rebound tenderness. No masses palpable. MUSCULOSKELETAL: No spinal point tenderness. Normal reflexive and no deficits to sensation or strength. RECTAL: [Deferred patient with no neurological findings] SKIN: Warm, Dry, normal turgor, no erythema, no edema no bruising. Past History - Past Medical History Allergies/Adverse Reactions: Allergies Allergy/AdvReac Type Severity Reaction Status Date / Time amoxicillin [Amoxicillin] AdvReac Mild Verified 04/06/17 10:36 Penicillins AdvReac Mild Verified 04/06/17 10:36 Home Medications: Ambulatory Orders Fluoxetine HCl [Prozac -] 40 mg PO DAILY 09/26/15 Diazepam [Valium] 5 mg PO Q8H #12 tablet MDD 3 04/06/17 Naproxen [Naprosyn -] 500 mg PO BID #14 tablet 04/06/17 Anemia: No Asthma: Yes Cancer: Yes (CERVICAL 2006 2012 ) Cardiac Disorders: No CVA: No COPD: Yes CHF: No DVT: No Dementia: No Diabetes: No GI Disorders: No Disorders: No HTN: No Kidney Stones: No Liver Disease: No Psychiatric Problems: Yes (anxiety) Seizures: Yes (09/06/16) Thyroid Disease: No - Surgical History Abdominal Surgery: Yes ([id number]) Appendectomy: No Cardiac Surgery: No Cholecystectomy: No Lung Surgery: No Neurologic Surgery: No Orthopedic Surgery: No - Reproductive History PID: No - Immunization History Immunization Up to Date: Yes - Suicide/Smoking/Psychosocial Hx Smoking Status: Yes Smoking History: Current every day smoker Have you smoked in the past 12 months: Yes Number of Cigarettes Smoked Daily: 15 Cigars Per Day: 0 Information on smoking cessation initiated: Yes 'Breaking Loose' booklet given: 04/06/17 Hx Alcohol Use: Yes (SOCIAL) Drug/Substance Use Hx: No Substance Use Type: None Hx Substance Use Treatment: Yes Trauma Specific PMHX - Complaint Specific PMHX Arthritis: No Back Injury: No Neck Injury: No *Physical Exam - Vital Signs Last Vital Signs Temp Pulse Resp BP Pulse Ox 98.0 F 79 18 124/84 100 04/06/17 10:37 04/06/17 10:37 04/06/17 10:37 04/06/17 10:37 04/06/17 10:37 Medical Decision Making - Medical Decision Making 04/06/17 12:12 A/P: Patient here for evaluation of torticollis, Toradol 60 mg and Valium 5 mg by mouth given, will reevaluate discharge 04/06/17 18:21 Patient reports relief of pain after given medication will DC patient home on Naprosyn and Valium, follow-up with orthopedics if pain persists. I discussed the physical exam findings, ancillary test results and final diagnoses with the patient. I answered all of the patient's questions. The patient was satisfied with the care received and felt comfortable with the discharge plan and treatment plan. The patient will call to arrange follow-up and will return to the Emergency Department with any new, persistent or worsening symptoms. *DC/Admit/Observation/Transfer Diagnosis at time of Disposition: Torticollis - Discharge Dispostion Disposition: HOME Condition at time of disposition: Good Admit: No - Prescriptions Prescriptions: Diazepam [Valium] 5 mg PO Q8H #12 tablet MDD 3 Naproxen [Naprosyn -] 500 mg PO BID #14 tablet - Referrals Referrals: Marilin Nugent [Primary Care Provider] - - Patient Instructions Printed Discharge Instructions: DI for Torticollis Additional Instructions: 1. Please return to the emergency department with any numbness, tingling, weakness, numbness or tingling to groin or legs, or loss of bowel or bladder function. 2. Use pain medication as ordered. 3. Please is to followup in the office of Dr. Zuluaga for evaluation within a week if no improvement. 4. Ice or heat 5. Refrain from lifting anything above 10 pounds, until pain resolved. - Post Discharge Activity Forms/Work/School Notes: Back to Work
== END 2017-04-06 13:42 | disposition home or self-care (01) ==
LOC: JERFT 10:17
PROC: 3E0233Z Introduction of Anti-inflammatory into Muscle, Percutaneous Approach (ICD-10-PCS; principal; 2017-04-06)
DX: M43.6 Torticollis (principal); F17.210 Nicotine dependence, cigarettes, uncomplicated; F41.9 Anxiety disorder, unspecified; J44.9 Chronic obstructive pulmonary disease, unspecified; Z85.41 Personal history of malignant neoplasm of cervix uteri
CPT/HCPCS: 99281-25

== ENCOUNTER 2018-03-03 22:10 | Emergency (ER) | payer BC, OTHER ==
[2018-03-03 22:15] VITALS: BP 123/81; PULSE 88; TEMP 98.7; BMI 27.0
[2018-03-03] MEDS ORDERED: DOXYCYCLINE HYCLATE 100 MG CAPSULE PO ONE ×2 (22:28→22:32)
--- NOTE | 2018-03-03 22:40 | PDOC ---
History of Present Illness - General Chief Complaint: Foreign Body (FB) Stated Complaint: FOREIGN BODY IN SKIN Time Seen by Provider: 03/03/18 22:24 History Source: Patient Exam Limitations: No Limitations - History of Present Illness Initial Comments: [place], and has animals at home. Tonight while she was showering looked down and noted a small insect on her left breast. Was a live tick, she tried to extract using tweezers and nail clippers but was unable to remove all of the insect. Came for evaluation and treatment. Occurred: reports: this evening Severity: reports: mild, moderate Pain Location: reports: chest Modifying Factors: improves with: None Loss of Consciousness: no loss of consciousness Associated Symptoms (Fall): denies symptoms Past History - Travel Traveled outside of the country in the last 30 days: No Close contact w/someone who was outside of country & ill: No - Past Medical History Allergies/Adverse Reactions: Allergies Allergy/AdvReac Type Severity Reaction Status Date / Time amoxicillin [Amoxicillin] AdvReac Mild Verified 03/03/18 22:14 Penicillins AdvReac Mild Verified 03/03/18 22:14 Home Medications: Ambulatory Orders Fluoxetine HCl [Prozac -] 40 mg PO DAILY 09/26/15 Diazepam [Valium] 5 mg PO Q8H #12 tablet MDD 3 04/06/17 Anemia: No Asthma: Yes Cancer: Yes (CERVICAL 2006 2012 ) Cardiac Disorders: No CVA: No COPD: Yes CHF: No DVT: No Dementia: No Diabetes: No GI Disorders: No Disorders: No HTN: No Kidney Stones: No Liver Disease: No Psychiatric Problems: Yes (anxiety) Seizures: Yes (09/06/16) Thyroid Disease: No - Surgical History Abdominal Surgery: Yes ([id number]) Appendectomy: No Cardiac Surgery: No Cholecystectomy: No Lung Surgery: No Neurologic Surgery: No Orthopedic Surgery: No - Reproductive History PID: No - Immunization History Immunization Up to Date: Yes - Suicide/Smoking/Psychosocial Hx Smoking Status: Yes Smoking History: Never smoked Have you smoked in the past 12 months: Yes Number of Cigarettes Smoked Daily: 15 Cigars Per Day: 0 Information on smoking cessation initiated: No 'Breaking Loose' booklet given: 04/06/17 Hx Alcohol Use: Yes (SOCIAL) Drug/Substance Use Hx: No Substance Use Type: None Hx Substance Use Treatment: Yes Trauma Specific PMHX - Complaint Specific PMHX Arthritis: No Back Injury: No Neck Injury: No Review of Systems - Review of Systems Able to Perform ROS?: Yes Is the patient limited [place] Citizen proficient: Yes Constitutional: Yes: Symptoms Reported, See HPI, Malaise Integumentary: Yes: Symptoms Reported, Other *Physical Exam - Vital Signs Last Vital Signs Temp Pulse Resp BP Pulse Ox 98.7 F 88 18 123/81 100 03/03/18 22:12 03/03/18 22:12 03/03/18 22:12 03/03/18 22:12 03/03/18 22:12 - Physical Exam General Appearance: Yes: Nourished, Appropriately Dressed, Apparent Distress, Mild Distress HEENT: positive: HELEN, Normal ENT Inspection, TMs Normal, Pharynx Normal Neck: positive: Supple. negative: Tender Respiratory/Chest: positive: Other (left breast upper inner quadrant noted fragments of insect consistent with a deer tick. No erythema, however skin is denuded from previous manipulation by patient.). negative: Chest Tender Extremity: positive: Normal Capillary Refill Integumentary: positive: Normal Color, Dry, Warm Neurologic: positive: mate first II-XII NML intact, Fully Oriented, Alert, Normal Mood/ Affect, Normal Response, Motor Strength 5/5 Procedures - Additional Procedures Additional Procedures: other (1% lidocaine with epi we'll placed under embedded fragments of insect. Able to lift remainder of tick body from wound. Cleaned and dressed with bacitracin ointment and Band-Aid. Patient tolerated well. Given 200 mg by mouth doxycycline for one-time treatment of prophylaxis for Lyme 's disease.) *DC/Admit/Observation/Transfer Diagnosis at time of Disposition: Tick bite with subsequent removal of tick - Discharge Dispostion Disposition: HOME Condition at time of disposition: Stable Decision to Admit order: No - Referrals Referrals: Marilin Nugent [Primary Care Provider] - - Patient Instructions Printed Discharge Instructions: How to Remove a Tick Additional Instructions: Keep area clean and dry, may use bacitracin ointment until wound healed You have been given doxycycline 200 mg tablet as one-time dose for treatment of potential Lyme disease from tick bite Follow-up with her PMD as needed - Post Discharge Activity Forms/Work/School Notes: Back to Work
== END 2018-03-03 22:42 | disposition home or self-care (01) ==
LOC: JERFT 22:10
DX: S20.359A Superficial foreign body of unspecified front wall of thorax, initial encounter (principal); S20.369A Insect bite (nonvenomous) of unspecified front wall of thorax, initial encounter; W57.XXXA Bitten or stung by nonvenomous insect and other nonvenomous arthropods, initial encounter; Y93.89 Activity, other specified; Y92.89 Other specified places as the place of occurrence of the external cause; Y99.8 Other external cause status; J45.909 Unspecified asthma, uncomplicated; J44.9 Chronic obstructive pulmonary disease, unspecified; F41.8 Other specified anxiety disorders; Z86.69 Personal history of other diseases of the nervous system and sense organs; Z85.41 Personal history of malignant neoplasm of cervix uteri
CPT/HCPCS: 99281-25

== ENCOUNTER 2018-07-27 01:16 | Emergency (ER) | payer BC, OTHER ==
[2018-07-27 01:36] VITALS: TEMP 98; BMI 30.2
--- NOTE | 2018-07-27 02:15 | PDOC ---
History of Present Illness - General Chief Complaint: Shortness of Breath Stated Complaint: DIFFICULTY BREATHING Time Seen by Provider: 07/27/18 02:02 History Source: Patient Exam Limitations: No Limitations - History of Present Illness Initial Comments: 07/27/18 02:03 38YOF with h/o asthma (admitted for this one year ago which was also her last steroid course, but never stayed in ICU, never intubated, triggers are UTI and aerosols), COPD (prior smoker), seizure disorder, cervical CA, BTL who p/w 2 days of fever, chills, runny nose, sore throat, dry cough, and cough-associated chest tightness. She has been using her albuterol MDI at home with minimal relief, and has taken Advil for discomfort. She denies abdominal pain, n/v/d/c, leg swelling, recent travel, etc. Past History - Past Medical History Allergies/Adverse Reactions: Allergies Allergy/AdvReac Type Severity Reaction Status Date / Time amoxicillin [Amoxicillin] AdvReac Mild Verified 03/03/18 22:14 Penicillins AdvReac Mild Verified 03/03/18 22:14 Home Medications: Ambulatory Orders Fluoxetine HCl [Prozac -] 40 mg PO DAILY 09/26/15 Diazepam [Valium] 5 mg PO Q8H #12 tablet MDD 3 04/06/17 Prednisone [Deltasone] 20 mg PO DAILY #4 tablet 07/27/18 Anemia: No Asthma: Yes Cancer: Yes (CERVICAL 2006 2012 ) Cardiac Disorders: No CVA: No COPD: Yes CHF: No DVT: No Dementia: No Diabetes: No GI Disorders: No Disorders: No HTN: No Kidney Stones: No Liver Disease: No Psychiatric Problems: Yes (anxiety) Seizures: Yes (09/06/16) Thyroid Disease: No - Surgical History Abdominal Surgery: Yes ([id number]) Appendectomy: No Cardiac Surgery: No Cholecystectomy: No Lung Surgery: No Neurologic Surgery: No Orthopedic Surgery: No - Reproductive History PID: No - Immunization History Immunization Up to Date: Yes - Suicide/Smoking/Psychosocial Hx Smoking Status: Yes Smoking History: Current every day smoker Have you smoked in the past 12 months: Yes Number of Cigarettes Smoked Daily: 0 Cigars Per Day: 0 Information on smoking cessation initiated: Yes 'Breaking Loose' booklet given: 04/06/17 Hx Alcohol Use: No Drug/Substance Use Hx: No Substance Use Type: None Hx Substance Use Treatment: Yes Respiratory Specific PMHX - Complaint Specific PMHX TB (Tuberculosis): No Review of Systems - Review of Systems Able to Perform ROS?: Yes Comments:: 07/27/18 03:09 GEN: fever, chills, no malaise, no generalized weakness, or weight change HEENT: no ear pain, sore throat, vision change, or eye pain CV: no chest pain, palpitations, lightheadedness, syncope, or edema RESP: cough, wheezing, SOB GI: no abdominal pain, nausea, vomiting, diarrhea, constipation, or white/black/ bloody stool : no dysuria, hematuria, incontinence, retention, bleeding, or discharge MSK: no neck/back pain, muscle weakness/pain, or joint swelling/pain NEURO: no headache, seizure, vertigo, numbness, tingling, or focal weakness PSYCH: no substance use, no behavior change SKIN: no jaundice, no rash ROS otherwise negative except as noted in HPI *Physical Exam - Vital Signs Last Vital Signs Temp Pulse Resp BP Pulse Ox 98 F 89 17 123/88 100 07/27/18 01:29 07/27/18 01:29 07/27/18 01:29 07/27/18 01:29 07/27/18 01:29 - Physical Exam Comments: 07/27/18 03:10 GENERAL: well-appearing, A/Ox4, no distress, answers questions appropriately HEENT: PERRLA, EOMI, moist mucous membranes NECK/BACK: no midline ttp, no spinal stepoff or deformity, no hematoma, full ROM , neck supple CARDIOVASCULAR: regular rate/rhythm, normal S1S2, no MGR, strong peripheral pulses, capillary refill <2 seconds, extremities wwp, no edema LUNGS/RESPIRATORY: occasional dry cough, no respiratory distress, mild b/l expiratory wheezes GI/ABDOMEN: symmetric [id number], normoactive BS, soft, no ttp, no midline pulsatile masses : no CVA tenderness EXTREMITIES: no muscle atrophy, no acute deformity SKIN: warm and dry, no pallor, no jaundice, no rash, no bruising, no skin breakdown, no cuts, no lesions NEUROLOGICAL: GCS 15, CN II-XII grossly intact, 5/5 strength proximally and distally, no facial droop Medical Decision Making - Medical Decision Making 07/27/18 03:07 Pt with h/o asthma p/w SOB and cough like their prior asthma exacerbation. Initial Vital Signs Temp Pulse Resp BP Pulse Ox 98 F 89 17 123/88 100 07/27/18 01:29 07/27/18 01:29 07/27/18 01:29 07/27/18 01:29 07/27/18 01:29 Exam: As noted in Physical Exam section. DDX IBNLT: asthma, viral URI, bronchitis, COPD, much less likely to be influenza or PNA, there is no concern for PTX, CHF, ACS, PE, pericarditis, pneumonitis, allergic rxn, etc. W/U ordered: CBCD CMP Mg Phos Cardiac panel Blood gas EKG CXR TX ordered: DuoNebs Decadron Albuterol MDI Patient states feeling much better, wants to go home, feels comfortable. 07/27/18 04:08 The Pt has gotten significant relief of symptoms while in the ED. Workup is not concerning for emergency-level pathology at this time. Pt states they have their normal asthma medications at home including albuterol MDI. 5 day course prednisone 20 mg sent to pharmacy. She does not require antibiotics at this time but will come back to ED for re- assessment if worse. The Pt is appropriate for discharge with close outpatient follow up. They are comfortable with this plan and will follow up with their primary care provider in 1-3 days. Specific return precautions are discussed and they will come back to the ER if necessary. *DC/Admit/Observation/Transfer Diagnosis at time of Disposition: Cough Asthma Qualifiers: Asthma severity: mild Asthma persistence: unspecified Asthma complication type : unspecified Qualified Code(s): J45.909 - Unspecified asthma, uncomplicated - Discharge Dispostion Disposition: HOME Condition at time of disposition: Stable Decision to Admit order: No - Prescriptions Prescriptions: Prednisone [Deltasone] 20 mg PO DAILY #4 tablet - Referrals Referrals: Marilin Nugent [Primary Care Provider] - - Patient Instructions Additional Instructions: You were seen in the ER for asthma exacerbation and possible upper respiratory infection. We gave you steroids and breathing treatments which helped your symptoms while you were here in the department. After our assessment, we do not believe you are having a medical emergency at this time, and we believe you are safe to go home. We are sending a prescription for prednisone to your pharmacy. Please take the whole course as prescribed, and follow up with your primary care provider(s) in the next 1-3 days. Call their clinic [facility], tell them you were seen in the ER for asthma, and tell them you need an appointment. Please come back to the ER at any time (24 hours a day) for any new or worsening symptoms, like worsened wheezing/shortness of breath that is not relieved with your home medications, new severe chest pain, loss of consciousness, etc. If you are having severe or life threatening symptoms, or symptoms that make it unsafe to drive or have someone drive you, please call 911. - Post Discharge Activity
--- NOTE | 2018-07-27 02:25 | PDOC ---
Attending Attestation - Resident Resident Name: CaterinaKadi - ED Attending Attestation I have performed the following: I have examined & evaluated the patient, The case was reviewed & discussed with the resident, I agree w/resident's findings & plan, Exceptions are as noted - HPI HPI: 07/27/18 05:36 38F pmh ashtma, sz do, cervical ca here with 2 days of f/c, cough, coryza and sob. Symptoms alleviated by advil. Pt used her inhaler once with minimal effect. no other complaints - Physicial Exam PE: 07/27/18 05:38 Well appearing, NAD, AOx3 RRR Diffuse, mild exp wheezing, normal wob, good air movement No c/c/e - Medical Decision Making 07/27/18 05:38 consider asthma exacerbation a/w uri imaging/abx not indicated significant improvement with treatment in ED rx steroids f/u pcp
[2018-07-27] MEDS ORDERED: ALBUTEROL SO4 2.5/IPRATROPIUM 0.5 INH SOL 3 ML VIAL.NEB. NEB ONE ×2 (02:40→02:55)
[2018-07-27] MEDS ORDERED: DEXAMETHASONE 4 MG TABLET (FP) PO STA ×3 (02:41→03:08)
[2018-07-27] MEDS ORDERED: ALBUTEROL SO4 8 GM HFA INHALER IH ONE (02:57)
[2018-07-27 04:23] VITALS: BP 105/69; PULSE 85
== END 2018-07-27 04:23 | disposition home or self-care (01) ==
LOC: JER 01:16
PROC: 3E0F7GC Introduction of Other Therapeutic Substance into Respiratory Tract, Via Natural or Artificial Opening (ICD-10-PCS; principal; 2018-07-27)
PROC: 3E0F7GC Introduction of Other Therapeutic Substance into Respiratory Tract, Via Natural or Artificial Opening (ICD-10-PCS; 2018-07-27)
DX: J45.901 Unspecified asthma with (acute) exacerbation (principal)
CPT/HCPCS: 99282-25

== ENCOUNTER 2018-10-03 18:09 | Emergency (ER) | payer BC, OTHER | END 2018-10-03 20:17 | disposition home or self-care (01) | LOC: JERFT 18:09 ==

== ENCOUNTER 2018-10-05 12:25 | Emergency (ER) | payer BC, OTHER | END 2018-10-05 13:47 | disposition home or self-care (01) | LOC: JERFT 12:25 ==

== ENCOUNTER 2018-10-08 19:49 | Inpatient (IN) | payer BC, OTHER ==
--- NOTE | 2018-10-08 20:53 | PDOC ---
Rapid Medical Evaluation Time Seen by Provider: 10/08/18 20:50 Medical Evaluation: Allergies Allergy/AdvReac Type Severity Reaction Status Date / Time amoxicillin [Amoxicillin] AdvReac Mild Verified 10/05/18 12:29 Penicillins AdvReac Mild Verified 10/05/18 12:29 10/08/18 20:50 This patient had brief in-person evaluation in triage cc: nausea and vomiting since taking antibiotics seen here on Monday had I & D of bartholian cyst ' PE: NAD unlabored breathing orders: This patient will proceed to the Ed for further evaluation
--- NOTE | 2018-10-08 22:00 | PDOC ---
*Physical Exam - Vital Signs Last Vital Signs Temp Pulse Resp BP Pulse Ox 98.3 F 87 18 107/87 100 10/08/18 20:52 10/08/18 20:52 10/08/18 20:52 10/08/18 20:52 10/08/18 20:52 Medical Decision Making - Medical Decision Making 10/08/18 22:00 Patient seen by the advanced practice provider under my direct supervision. Ancillary testing reviewed as necessary. I agree with plan as outlined by the advanced practice provider. *DC/Admit/Observation/Transfer Diagnosis at time of Disposition: Bartholin cyst Fever Qualifiers: Fever type: unspecified Qualified Code(s): R50.9 - Fever, unspecified - Referrals Referrals: Marilin Nugent [Primary Care Provider] - - Patient Instructions - Post Discharge Activity
--- NOTE | 2018-10-08 22:02 | PDOC ---
History of Present Illness - General Chief Complaint: Revisit,Wound Recheck Stated Complaint: NAUSEA Time Seen by Provider: 10/08/18 20:50 History Source: Patient - History of Present Illness Initial Comments: 10/08/18 22:03 38 year old female s/p bartholin cyst i&D on 10/03/18 reports that she has been having fever for the last 3 days, fever tmax 101 today and nauseous today. patient reports that cyst size increased since packing was removed. Past History - Past Medical History Allergies/Adverse Reactions: Allergies Allergy/AdvReac Type Severity Reaction Status Date / Time amoxicillin [Amoxicillin] AdvReac Mild Verified 10/08/18 20:55 Penicillins AdvReac Mild Verified 10/08/18 20:55 Home Medications: Ambulatory Orders Fluoxetine HCl [Prozac -] 60 mg PO DAILY 09/26/15 Cephalexin Monohydrate [Keflex -] 500 mg PO BID 7 Days #14 capsule 10/03/18 Ibuprofen 800 mg PO Q8H PRN #20 tablet 10/03/18 Sulfamethoxazole/Trimethoprim [Bactrim Ds -] 1 tab PO BID #14 tablet 10/03/18 acetaZOLAMIDE [Diamox -] 250 mg PO ASDIR 10/03/18 Anemia: No Asthma: Yes Cancer: Yes (CERVICAL 2006 2012 ) Cardiac Disorders: No CVA: No COPD: Yes CHF: No DVT: No Dementia: No Diabetes: No GI Disorders: No Disorders: No HTN: No Kidney Stones: No Liver Disease: No Psychiatric Problems: Yes (anxiety) Seizures: Yes (09/06/16) Thyroid Disease: No - Surgical History Abdominal Surgery: Yes ([id number]) Appendectomy: No Cardiac Surgery: No Cholecystectomy: No Lung Surgery: No Neurologic Surgery: No Orthopedic Surgery: No - Reproductive History PID: No - Immunization History Immunization Up to Date: Yes - Suicide/Smoking/Psychosocial Hx Smoking Status: Yes Smoking History: Current every day smoker Have you smoked in the past 12 months: Yes Number of Cigarettes Smoked Daily: 0 Cigars Per Day: 0 Information on smoking cessation initiated: No 'Breaking Loose' booklet given: 04/06/17 Hx Alcohol Use: No Drug/Substance Use Hx: No Substance Use Type: None Hx Substance Use Treatment: Yes Review of Systems - Review of Systems Able to Perform ROS?: Yes Is the patient limited [place] proficient: No Constitutional: Yes: Fever ABD/GI: Yes: Nausea, Vomiting, Abdominal cramping (epigastric pain) Integumentary: Yes: Other (cyst) *Physical Exam - Vital Signs Last Vital Signs Temp Pulse Resp BP Pulse Ox 98.3 F 87 18 107/87 100 10/08/18 20:52 10/08/18 20:52 10/08/18 20:52 10/08/18 20:52 10/08/18 20:52 - Physical Exam General Appearance: Yes: Appropriately Dressed Respiratory/Chest: positive: Lungs Clear, Normal Breath Sounds Cardiovascular: positive: Regular Rhythm, Regular Rate Female Pelvic Exam: positive: other (right labial edema with fluctuant mass) Gastrointestinal/Abdominal: positive: Normal Bowel Sounds, Soft Integumentary: positive: Dry, Warm Neurologic: positive: Fully Oriented, Alert ED Treatment Course - LABORATORY CBC & Chemistry Diagram: 10/08/18 22:55 10/08/18 23:30 Medical Decision Making - Medical Decision Making A: Infected bartholin cyst; fever P: blood culture CBC CMP UA 10/09/18 01:[address] Bose. will consult inpatient. patient to continue antibiotics. patient admitted to hospitalist service for further management of care. patient signed out to Dr. Saez *DC/Admit/Observation/Transfer Diagnosis at time of Disposition: Bartholin cyst, Abscess of right genital labia Fever Qualifiers: Fever type: unspecified Qualified Code(s): R50.9 - Fever, unspecified - Discharge Dispostion Decision to Admit order: Yes - Referrals - Patient Instructions - Post Discharge Activity
[2018-10-08] MEDS ORDERED: FAMOTIDINE 20 MG/50 ML IVPB 20 MG/50 ML MG IVPB ONE ×2 (22:10→22:40)
[2018-10-08] MEDS ORDERED: ONDANSETRON 4 MG/2 ML VIAL IVPUSH ONE (22:10)
[2018-10-08] MEDS ORDERED: SODIUM CHLORIDE 1,000 ML IV STA (22:10)
[2018-10-08] MEDS ORDERED: ONDANSETRON 4 MG/2 ML VIAL ONE (22:40)
[2018-10-08 23:34] LABS: VENOUS PC02 42.9 mmHg (41-51); VENOUS PH 7.32 (7.31-7.41)
[2018-10-08 23:36] LABS: VENOUS PO2 27.3 mmHg (30-40)
[2018-10-08 23:40] LABS: BASO % 0.5 % (0-2.0); EOS % 2.1 % (0-4.5); HEMOGLOBIN 13.4 GM/dL (10.7-15.3); LYMPH % 20.3 % (8-40); MCH 29.3 pg (25.7-33.7); MCHC 32.7 g/dl (32.0-36.0); MEAN CELL VOLUME 89.4 fl (80-96); MEAN PLT VOLUME 7.6 fl (7.5-11.1); MONO % 9.5 % (3.8-10.2); NEUT % 67.6 % (42.8-82.8); PLATELET COUNT 439 K/MM3 (134-434); RBC 4.58 M/mm3 (3.60-5.2); RDW 15.2 % (11.6-15.6); WHITE BLOOD COUNT 9.2 K/mm3 (4.0-10.0)
[2018-10-08 23:48] LABS: INR 1.06 (0.83-1.09); PROTHROMBIN TIME (PATIENT) 12.5 SEC (9.7-13.0)
[2018-10-08 23:51] LABS: ACTIVATED PTT 34.5 SECONDS (25.2-36.5)
[2018-10-09 00:09] LABS: BLOOD UREA NITROGEN 15.1 mg/dL (7-18); POTASSIUM 3.9 mmol/L (3.5-5.1)
[2018-10-09 00:10] LABS: ALBUMIN 3.9 g/dl (3.4-5.0); BILIRUBIN,TOTAL 0.3 mg/dL (0.2-1); CALCIUM 9.3 mg/dL (8.5-10.1); TOT PROT 8.2 g/dl (6.4-8.2)
[2018-10-09 01:19] LABS: EPI CELLS 2.2 /HPF (0-5/HPF); HYALINE CASTS 3 /lpf (0-8); URINE APPEARANCE CLEAR; URINE BILIRUBIN NEGATIVE (NEGATIVE); URINE COLOR YELLOW; URINE GLUCOSE (UA) NEGATIVE (NEGATIVE); URINE KETONE NEGATIVE (NEGATIVE); URINE LEUK ESTERASE NEGATIVE (NEGATIVE); URINE NITRITE NEGATIVE (NEGATIVE); URINE PROTEIN NEGATIVE (NEGATIVE); URINE RBC 26 /hpf (0-4); URINE UROBILINOGEN 0.2 mg/dL (0.2-1.0); URINE WBC 1 /hpf (0-5)
[2018-10-09] MEDS ORDERED: ACETAMINOPHEN 1000 MG/100 ML VIAL (NON FORMULARY) IVPB ONE (01:31)
[2018-10-09] MEDS ORDERED: ACETAMINOPHEN INJECTION 100 ML IVPB ONE (01:56)
--- NOTE | 2018-10-09 02:54 | HP ---
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 Pt presented on 10/03 with vaginal abscess which was drained and packed and started on Ab (keflex and bactrim). The pack was removed on 10/05 and patient continued AB. Pt reports poor appetite x 3 days with passage of loose stools. Pt reports a 10/01 dull epigastric abdominal pain with associated with nausea and one episode of bilous vomiting today. In the ED, fur tailor _ Dr bose was contacted, who agreed to be consulted on the case while the pt receives iv AB. Recent urine cx- grew 3 orgs- E fecalis and Staph coagulase neg 1 and 2 ( sensitive to levoflox) ED: EKG-77bpm, NSR, normal intervals/axis, no ALY/STD, QTC-470 Levaquin/metronidazole/NS/Famotidine/zofran History Source: Patient - Past Medical History Pulmonary: Yes: Asthma, COPD ...LMP: 10/06/18 ...LMP Comment: 7-9 days ...: No ...: 4 (2 arborta) ...Para: 2 (2 Alive) - Past Surgical History Past Surgical History: Yes: Hernia Repair, Tubal Ligation Additional Past Surgical History: cryotherapy and cone biopsy- cervix - Smoking History Smoking history: Current every day smoker (Smoked) Have you smoked in the past 12 months: Yes Aproximately how many cigarettes per day: 0 (Now vapes x 1year) - Alcohol/Substance Use Hx Alcohol Use: No - Social History Usual Living Arrangement: Yes: With Significant Other ADL: Independent History of Recent Travel: No Home Medications - Allergies Allergies/Adverse Reactions: Allergies Allergy/AdvReac Type Severity Reaction Status Date / Time amoxicillin [Amoxicillin] AdvReac Mild Verified 10/08/18 20:55 Penicillins AdvReac Mild Verified 10/08/18 20:55 - Home Medications Home Medications: Ambulatory Orders Fluoxetine HCl [Prozac -] 60 mg PO DAILY 09/26/15 Ibuprofen 800 mg PO Q8H PRN #20 tablet 10/03/18 acetaZOLAMIDE [Diamox -] 250 mg PO ASDIR 10/03/18 Amoxicillin/Potassium Clav [Augmentin 875-125 Tablet] 1 each PO BID #14 tablet 10/09/18 Family Disease History - Family Disease History Family Disease History: Diabetes: Mother (NO CONTACT), Heart Disease: Father ( ), Mother, Respiratory: Mother, Sister, Other: Father, Mother, Brother ( NO CONTACT) Review of Systems - Review of Systems Constitutional: reports: Chills (Tmax 101 at home), Fever Eyes: denies: Blurred Vision HENT: denies: Difficult Swallowing, Throat Pain Cardiovascular: denies: Chest Pain, Edema, Shortness of Breath Respiratory: denies: Cough Gastrointestinal: reports: Abdominal Pain, Diarrhea, Vomiting. denies: Vomiting Blood Genitourinary: reports: Other (vaginal pain) Neurological: denies: Change in LOC, Change in Speech, Confusion Hematology/Lymphatic: reports: Other (menometrorrhagia- 7-9 days bleed) Psychiatric: reports: Anxiety Physical Examination Vital Signs: Vital Signs Temperature 98.3 F 10/09/18 02:00 Pulse Rate 95 H 10/09/18 02:00 Respiratory Rate 16 10/09/18 02:00 Blood Pressure 98/56 L 10/09/18 02:00 O2 Sat by Pulse Oximetry (%) 97 10/09/18 02:00 Constitutional: Yes: Well Nourished, No Distress, Calm Eyes: Yes: Conjunctiva Clear, EOM Intact, PERRL HENT: Yes: Atraumatic Neck: Yes: Supple Cardiovascular: Yes: Regular Rate and Rhythm, S1, S2 Respiratory: Yes: CTA Bilaterally Gastrointestinal: Yes: Soft, Tenderness, Epigastrium Renal/: Yes: Vaginal Bleeding (menstrual bleed), Other (R labial swelling at ( 10-11 o'clock), 2x5cm, pink, soft-firm, no obvious pus drainage. Recent I&D site open. Scattered healed skin excoriations. Cervical speculum exam with minimal whitish discharge, closed cervical os with minimal blood oozing.) Musculoskeletal: No: Back Pain Extremities: Yes: WNL Edema: No Peripheral Pulses WNL: Yes Integumentary: Yes: Body Piercing (Tongue) Neurological: Yes: Alert, Oriented, Cran Nerves II-XII Intact. No: Aphasia, Dysarthria, Lethargy, Loss of Sensation, Unsteady Gait ...Motor Strength: WNL Psychiatric: Yes: Alert, Oriented Labs: CBC, BMP 10/08/18 22:55 10/08/18 23:30 Assessment/Plan Active Medications Fluoxetine HCl (Prozac -) 60 mg PO DAILY ATJ Lactated Ringer's (Lactated Ringers Solution) 1,000 ml in 1,000 mls @ 100 mls/ hr IV ASDIR TAJ Last Admin: 10/09/18 03:45 Dose: 100 mls/hr Levofloxacin (Levaquin 500 Mg Premixed Ivpb -) 500 mg in 100 mls @ 100 mls/hr IVPB DAILY TAJ; Protocol Clindamycin Phosphate (Cleocin 600 Mg Premix Ivpb -) 600 mg in 50 mls @ 100 mls /hr IVPB Q8H-IV TAJ; Protocol Metoclopramide HCl (Reglan Injection -) 10 mg IVPUSH Q8H PRN PRN Reason: NAUSEA AND/OR VOMITING Pantoprazole Sodium (Protonix Iv) 40 mg IVPUSH DAILY [facility] Ambulatory Orders Fluoxetine HCl [Prozac -] 60 mg PO DAILY 09/26/15 Cephalexin Monohydrate [Keflex -] 500 mg PO BID 7 Days #14 capsule 10/03/18 Ibuprofen 800 mg PO Q8H PRN #20 tablet 10/03/18 Sulfamethoxazole/Trimethoprim [Bactrim Ds -] 1 tab PO BID #14 tablet 10/03/18 acetaZOLAMIDE [Diamox -] 250 mg PO ASDIR 10/03/18 Assessment/Plan: Pt is a 38 yo F with PMHx of alcoholic seizures, Smoking hx, asthma/COPD, anxiety, ZEE-3 s/p cryotherapy and cone biopsy presenting with a 4 day hx of R labial swelling and pain and abdominal pain x 3 days and fever x 1day. #Vulvovaginal abscess: Recent abscess drain and packing, with PO antibiotics LMP-10/06/18 Pt sexually active with partner Prior hx of HPV with CIN3 No recent STI hx GC/Chlamydia, HIV Levoflox 500 daily, based on Ucx -10/03 ucx, bcx clinda 600 Q8H Tylenol Metoclopramide 10 mg Q8H Repeat EKG- QTC-470 TECHNICAL SPECIALIST CYTOGENETICS consult- Dr Bose #Abdominal pain/Diarrhea Could be antibiotic related Keflex dcd #alcoholic seizures Pt stable, no evidence of withdrawal Denies recent ingestion, monitor #Smoking hx, Pt reports transitioning to Ecigs x1 year Nicotine patch #asthma/COPD Denies recent exacerbation Intermittently uses albuterol as needed Will benefit from outpt spirometry #anxiety On duloxetine, cont QTC-470 Watch for tardive dyskinesia with concurrent metoclopramide use #ZEE-3 s/p cryotherapy and cone biopsy Hx of HPV Does not use protection HIV test, GC/Chlamydia #FEN Received 1L NS in ED Cont LR @100 Monitor lytes, replete as needed NPO Hold chemical prophylaxis for now protonix 40mg iv Medsurg Visit type - Emergency Visit Emergency Visit: Yes ED Registration Date: 10/09/18 Care time: The patient presented to the Emergency Department on the above date and was hospitalized for further evaluation of their emergent condition. - New Patient This patient is new to me today: Yes Date on this admission: 10/09/18 - Critical Care Critical Care patient: No
[2018-10-09] MEDS ORDERED: ONDANSETRON 4 MG/2 ML VIAL IVPUSH PRN (03:20)
[2018-10-09] MEDS ORDERED: LACTATED RINGERS SOLUTION 1,000 ML/1,000 ML INFUS.BAG IV SCH (03:30)
[2018-10-09] MEDS ORDERED: METOCLOPRAMIDE HCL INJECTION 10 MG/2 ML VIAL IVPUSH PRN (04:01)
--- NOTE | 2018-10-09 04:50 | PN ---
Teaching Attending Note Name of Resident: Enma Orosco ATTENDING PHYSICIAN STATEMENT I saw and evaluated the patient. I reviewed the resident's note and discussed the case with the resident. I agree with the resident's findings and plan as documented. SUBJECTIVE: Seen and examined; please refer to resident note for further historical information. Briefly, this is a 38 y/o female presenting to the Er with subjective fevers and vulvar pain. Recently had bartholin cyst I and D on 10/03 with packing removed subsequentially; was treated with abx as documented in ER notes (keflex, tmp/smx) which she has been compliant with. Her symptoms were persistent so she came to the ER. No white count or fever, not SIRS+. ER spoke with operational communication chief who will see in AM. 10 sys ROS done and negative aside from HPI PMH, PSH, FH, SH reviewed Home Medications Medication Instructions Recorded Fluoxetine HCl [Prozac -] 60 mg PO DAILY 09/26/15 Cephalexin Monohydrate [Keflex -] 500 mg PO BID 7 Days #14 capsule 10/03/18 Ibuprofen 800 mg PO Q8H PRN #20 tablet 10/03/18 Sulfamethoxazole/Trimethoprim 1 tab PO BID #14 tablet 10/03/18 [Bactrim Ds -] acetaZOLAMIDE [Diamox -] 250 mg PO ASDIR 10/03/18 OBJECTIVE: VS, labs, imaging reviewed NAD, AAO, resting comfortably in bed RRR s1/2 no mgr NC AT EOMI PERRLA Vaginal exam as documented NT ND +BS CN2-12 wnl, no fnd Normal mood, appropriate behavior. Micro reviewed; EF and 2xCoag neg staph ASSESSMENT AND PLAN: Patient presents with infected bartholin gland cyst 1) Bartholin gland cyst -IV abx with levaquin and clinda; if no improvement or subsequent fevers will have to change clinda to vancomycin and metronidazole given community acquired MRSA sn, but she appears to be stable with current tx. -Deferring rest of care to OBGYN with procedures, etc. 2) Thrombocytosis -Likely reactive, trend 3) Obesity -BMI 30; college counselor prior to DC Full Code
[2018-10-09 05:50] LABS: BASO % 0.6 % (0-2.0); LYMPH % 26.2 % (8-40); MEAN CELL VOLUME 89.1 fl (80-96)
[2018-10-09 05:57] LABS: EOS % 2.8 % (0-4.5); HEMATOCRIT 37.2 % (32.4-45.2); HEMOGLOBIN 12.2 GM/dL (10.7-15.3); MCH 29.3 pg (25.7-33.7); MCHC 32.9 g/dl (32.0-36.0); MEAN PLT VOLUME 7.4 fl (7.5-11.1); MONO % 9.3 % (3.8-10.2); NEUT % 61.1 % (42.8-82.8); PLATELET COUNT 383 K/MM3 (134-434); RBC 4.17 M/mm3 (3.60-5.2); RDW 15.2 % (11.6-15.6)
[2018-10-09 06:17] LABS: BILIRUBIN,TOTAL 0.3 mg/dL (0.2-1); BLOOD UREA NITROGEN 11.2 mg/dL (7-18); CALCIUM 8.3 mg/dL (8.5-10.1); CREATININE 0.8 mg/dL (0.55-1.3); MAGNESIUM 2.1 mg/dL (1.8-2.4); PHOSPHOROUS 2.5 mg/dL (2.5-4.9); POTASSIUM 4.1 mmol/L (3.5-5.1); TOT PROT 6.4 g/dl (6.4-8.2)
[2018-10-09 06:39] VITALS: BMI 31.8
[2018-10-09] MEDS ORDERED: NICOTINE 21 MG/24 HOURS TOPICAL PATCH TD SCH (10:00)
[2018-10-09] MEDS ORDERED: PANTOPRAZOLE SODIUM 40 MG VIAL IVPUSH SCH (10:00)
[2018-10-09] MEDS ORDERED: FLUoxetine HCL 20 MG CAPSULE (FP) PO SCH (10:00)
[2018-10-09] MEDS ORDERED: CLINDAMYCIN 600MG PREMIX IVPB 600 MG/50 ML BAG IVPB SCH (10:00)
--- NOTE | 2018-10-09 10:28 | EKG ---
Test Reason : Blood Pressure : / mmHG Vent. Rate : 076 BPM Atrial Rate : 076 BPM P-R Int : 134 ms QRS Dur : 080 ms QT Int : 406 ms P-R-T Axes : 054 066 050 degrees QTc Int : 456 ms NORMAL SINUS RHYTHM NORMAL ECG WHEN COMPARED WITH ECG OF 08-OCT-2018 22:36, NO SIGNIFICANT CHANGE WAS FOUND Confirmed by MD RAS, SANG ([id number]) on 10/09/2018 10:28:26 AM Referred By: Robert SANTOS Confirmed By:SANG MCGINNIS MD
--- NOTE | 2018-10-09 10:34 | EKG ---
Test Reason : Blood Pressure : / mmHG Vent. Rate : 077 BPM Atrial Rate : 077 BPM P-R Int : 128 ms QRS Dur : 084 ms QT Int : 416 ms P-R-T Axes : 049 066 052 degrees QTc Int : 470 ms NORMAL SINUS RHYTHM NORMAL ECG Confirmed by MD RAS, SANG ([id number]) on 10/09/2018 10:33:34 AM Referred By: Confirmed By:SANG MCGINNIS MD
--- NOTE | 2018-10-09 12:10 | PN ---
Teaching Attending Note Name of Resident: Wesley Braden ATTENDING PHYSICIAN STATEMENT I saw and evaluated the patient. I reviewed the resident's note and discussed the case with the resident. I agree with the resident's findings and plan as documented. SUBJECTIVE: No fever or chills. No HALL. minimal discomfort in R labia , no vaginal discharge or urinary sx. has her period. rpeorted nausea nad vomiting at home, no Abd pain . OBJECTIVE: NAD Cv: RRR, no MRG Lungs: CTAB Abd:soft, NT, ND , NL BS Ext: no edema or erythema : examined with team : indurated lower part of R labia majora with a small ulcer with no drainage. 1 cm lump felt under the skin in R groin , no erythema or tenderness. No LAP in groins ASSESSMENT AND PLAN: 38 y/o lady with h/o alcoholic seizures, asthma, anxiety, ZEE-3 s/p cryotherapy , previous infections in gential area ( ? infected bartholin cyst) , and recent ER visit s/p Infected R BArtholin cyst drainage, and Abx treatment who presented with N/V. 1- N/V: could be due to GI upset form the Abx. benign abd exam. Nl electrolytes. sx resolved 2- Infected R Bartholin cyst: - no signs of sepsis. has localized infection. - previous cx reviewed. E faecalis and coag neg staph - will change abx to Augmentin - PHARMACY INTAKE COORDINATOR eval pending - A1c pending - HIV neg 3- microspopic hematuria: patient has her period 4- dispo: will dc home today after PHARMACY INTAKE COORDINATOR eval , if no further w/u indicated
[2018-10-09 13:39] VITALS: BP 109/70; PULSE 85; TEMP 98
--- NOTE | 2018-10-09 17:12 | DS ---
Physical Exam: SUBJECTIVE: Patient seen and examined at bedside. Denies abdominal pelvic pain. Denies subjective fever as well. OBJECTIVE: Vital Signs Period Temp Pulse Resp BP Sys/Christopher Pulse Ox Last 24 Hr 97.7 F-98.4 F 75-95 16-20 98-109/56-87 97-100 PHYSICAL EXAM GENERAL: NAD HEAD: Normal with no signs of trauma. EYES: EOMI Scler Clear ENT: MMM NECK: Trachea midline, full range of motion, supple. LUNGS: CTAB HEART: RRR ABDOMEN: Soft NDNT : Examined with RN Annmarie as well as medical team; Enlarged R Labia majora and small nonoozing Ulcer. PSYCH: Normal mood, normal affect. SKIN: Warm, dry, normal turgor, no rashes or lesions noted. LABS Laboratory Results - last 24 hr 10/08/18 10/08/18 10/08/18 22:55 22:55 22:55 WBC 9.2 RBC 4.58 Hgb 13.4 Hct 41.0 MCV 89.4 MCH 29.3 MCHC 32.7 RDW 15.2 D Plt Count 439 H D MPV 7.6 D Absolute Neuts (auto) 6.2 Neutrophils % 67.6 Lymphocytes % 20.3 D Monocytes % 9.5 Eosinophils % 2.1 Basophils % 0.5 Nucleated RBC % 0 PT with INR 12.50 INR 1.06 PTT (Actin FS) 34.5 VBG pH 7.32 POC VBG pCO2 42.9 POC VBG pO2 27.3 L VBG HCO3 21.4 L VBG O2 Sat (Manju) 43.3 L VBG Base Excess -4.1 L Sodium Potassium Chloride Carbon Dioxide Anion Gap BUN Creatinine Est GFR (CKD-EPI)AfAm Est GFR (CKD-EPI)NonAf Random Glucose Hemoglobin A1c % Lactic Acid Calcium Phosphorus Magnesium Total Bilirubin AST ALT Alkaline Phosphatase Troponin I Total Protein Albumin Urine Color Urine Appearance Urine pH Ur Specific [place] Urine Protein Urine Glucose (UA) Urine Ketones Urine Blood Urine Nitrite Urine Bilirubin Urine Urobilinogen Ur Leukocyte Esterase Urine WBC (Auto) Urine RBC (Auto) Urine Casts (Auto) U Pathogenic Cast Auto U Epithel Cells (Auto) U Sm Round Cell (Auto) Urine Crystals (Auto) Urine Bacteria (Auto) HIV Ag/Ab Interpret HIV Genotype HIV-2 Antibody HIV-2 Antibody Conf HIV 1&2 Antibody Screen HIV 1&2 Ab Final Interp HIV P24 Antigen 10/08/18 10/08/18 10/08/18 23:30 23:30 23:30 WBC RBC Hgb Hct MCV MCH MCHC RDW Plt Count MPV Absolute Neuts (auto) Neutrophils % Lymphocytes % Monocytes % Eosinophils % Basophils % Nucleated RBC % PT with INR INR PTT (Actin FS) VBG pH POC VBG pCO2 POC VBG pO2 VBG HCO3 VBG O2 Sat (Manju) VBG Base Excess Sodium 137 Potassium 3.9 Chloride 107 Carbon Dioxide 23 Anion Gap 8 BUN 15.1 Creatinine 1.0 Est GFR (CKD-EPI)AfAm 81.61 Est GFR (CKD-EPI)NonAf 70.41 Random Glucose 91 Hemoglobin A1c % Lactic Acid 1.1 Calcium 9.3 Phosphorus Magnesium Total Bilirubin 0.3 AST 12 L ALT 14 Alkaline Phosphatase 92 Troponin I < 0.02 Total Protein 8.2 Albumin 3.9 Urine Color Urine Appearance Urine pH Ur Specific [place] Urine Protein Urine Glucose (UA) Urine Ketones Urine Blood Urine Nitrite Urine Bilirubin Urine Urobilinogen Ur Leukocyte Esterase Urine WBC (Auto) Urine RBC (Auto) Urine Casts (Auto) U Pathogenic Cast Auto U Epithel Cells (Auto) U Sm Round Cell (Auto) Urine Crystals (Auto) Urine Bacteria (Auto) HIV Ag/Ab Interpret HIV Genotype HIV-2 Antibody HIV-2 Antibody Conf HIV 1&2 Antibody Screen HIV 1&2 Ab Final [facility] HIV P24 Antigen 10/09/18 10/09/18 10/09/18 00:30 03:45 05:00 WBC RBC Hgb Hct MCV MCH MCHC RDW Plt Count MPV Absolute Neuts (auto) Neutrophils % Lymphocytes % Monocytes % Eosinophils % Basophils % Nucleated RBC % PT with INR INR PTT (Actin FS) VBG pH POC VBG pCO2 POC VBG pO2 VBG HCO3 VBG O2 Sat (Manju) VBG Base Excess Sodium Potassium Chloride Carbon Dioxide Anion Gap BUN Creatinine Est GFR (CKD-EPI)AfAm Est GFR (CKD-EPI)NonAf Random Glucose Hemoglobin A1c % Lactic Acid 0.6 Calcium Phosphorus Magnesium Total Bilirubin AST ALT Alkaline Phosphatase Troponin I Total Protein Albumin Urine Color Yellow Urine Appearance Clear Urine pH 5.0 Ur Specific [place] 1.027 Urine Protein Negative Urine Glucose (UA) Negative Urine Ketones Negative Urine Blood 2+ H Urine Nitrite Negative Urine Bilirubin Negative Urine Urobilinogen 0.2 Ur Leukocyte Esterase Negative Urine WBC (Auto) 1 Urine RBC (Auto) 26 Urine Casts (Auto) 3 U Pathogenic Cast Auto No Result Required. U Epithel Cells (Auto) 2.2 U Sm Round Cell (Auto) No Result Required. Urine Crystals (Auto) No Result Required. Urine Bacteria (Auto) 1.0 HIV Ag/Ab Interpret HIV Genotype HIV-2 Antibody HIV-2 Antibody Conf HIV 1&2 Antibody Screen Negative HIV 1&2 Ab Final Interp HIV P24 Antigen Negative 10/09/18 10/09/18 10/09/18 05:20 05:20 05:20 WBC 8.0 RBC 4.17 Hgb 12.2 Hct 37.2 MCV 89.1 MCH 29.3 MCHC 32.9 RDW 15.2 Plt Count 383 MPV 7.4 L Absolute Neuts (auto) 4.9 Neutrophils % 61.1 Lymphocytes % 26.2 D Monocytes % 9.3 Eosinophils % 2.8 Basophils % 0.6 Nucleated RBC % 0 PT with INR INR PTT (Actin FS) VBG pH POC VBG pCO2 POC VBG pO2 VBG HCO3 VBG O2 Sat (Manju) VBG Base Excess Sodium 140 Potassium 4.1 Chloride 112 H Carbon Dioxide 24 Anion Gap 4 L BUN 11.2 Creatinine 0.8 Est GFR (CKD-EPI)AfAm 106.88 Est GFR (CKD-EPI)NonAf 92.22 Random Glucose 91 Hemoglobin A1c % Lactic Acid Calcium 8.3 L Phosphorus 2.5 Magnesium 2.1 Total Bilirubin 0.3 AST 10 L ALT 12 L Alkaline Phosphatase 75 Troponin I Total Protein 6.4 Albumin 3.0 L Urine Color Urine Appearance Urine pH Ur Specific [place] Urine Protein Urine Glucose (UA) Urine Ketones Urine Blood Urine Nitrite Urine Bilirubin Urine Urobilinogen Ur Leukocyte Esterase Urine WBC (Auto) Urine RBC (Auto) Urine Casts (Auto) U Pathogenic Cast Auto U Epithel Cells (Auto) U Sm Round Cell (Auto) Urine Crystals (Auto) Urine Bacteria (Auto) HIV Ag/Ab Interpret Cancelled HIV Genotype Cancelled HIV-2 Antibody Cancelled HIV-2 Antibody Conf Cancelled HIV 1&2 Antibody Screen HIV 1&2 Ab Final Interp Cancelled HIV P24 Antigen 10/09/18 05:20 WBC RBC Hgb Hct MCV MCH MCHC RDW Plt Count MPV Absolute Neuts (auto) Neutrophils % Lymphocytes % Monocytes % Eosinophils % Basophils % Nucleated RBC % PT with INR INR PTT (Actin FS) VBG pH POC VBG pCO2 POC VBG pO2 VBG HCO3 VBG O2 Sat (Manju) VBG Base Excess Sodium Potassium Chloride Carbon Dioxide Anion Gap BUN Creatinine Est GFR (CKD-EPI)AfAm Est GFR (CKD-EPI)NonAf Random Glucose Hemoglobin A1c % 5.7 Lactic Acid Calcium Phosphorus Magnesium Total Bilirubin AST ALT Alkaline Phosphatase Troponin I Total Protein Albumin Urine Color Urine Appearance Urine pH Ur Specific [place] Urine Protein Urine Glucose (UA) Urine Ketones Urine Blood Urine Nitrite Urine Bilirubin Urine Urobilinogen Ur Leukocyte Esterase Urine WBC (Auto) Urine RBC (Auto) Urine Casts (Auto) U Pathogenic Cast Auto U Epithel Cells (Auto) U Sm Round Cell (Auto) Urine Crystals (Auto) Urine Bacteria (Auto) HIV Ag/Ab Interpret HIV Genotype HIV-2 Antibody HIV-2 Antibody Conf HIV 1&2 Antibody Screen HIV 1&2 Ab Final Interp HIV P24 Antigen HOSPITAL COURSE: Date of Admission:10/09/18 Pt is a 38 yo F with PMHx of alcoholic seizures, asthma/COPD, anxiety, 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 Pt was initially treated with Levofloxacin as well as metronidazole by the ED. Previous wound culture from ED visit on 10/03 revealed E faecalis and coag neg staph. Pt's ABx were switched to Augmentin 875 mg PO BID for a total of 7 days. LUNCHROOM SUPERVISOR was contacted who advised pt follow up this week in clinic. Date of Discharge: 10/09/18 Minutes to complete discharge: 35 Discharge Summary Reason For Visit: FEVER, CYST OF BARTHOLIN'S GLAND DUCT Condition: Improved - Instructions Diet, Activity, Other Instructions: You presented to the hospital due to nausea, vomiting, and stomach pain. You were found to have an abscess next to your vagina called Bartolin Cyst infection . please take the following antibiotic as prescribed: Augmentin 875 mg TWICE per day starting tonight for 7 days. This medication has been sent to your pharmacy. please follow up with your primary care physician within one week , if you don' t have one you can call and schedule appointment with Dr. Braden. Please follow up with the JUMPBASTING COLLAR BASTER this week. If you do not have an JUMPBASTING COLLAR BASTER, please follow up with Dr Bose. A referral has been provided for you in your discharge paperwork. Please return to the emergency department of you begin to experience increased discomfort in your pelvic area, fevers, or any other abnormal symptoms. Referrals: Shantanu Hirsch MD [Staff Physician] - Diane Bose MD [Staff Physician] - 1 Week Disposition: HOME - Home Medications Comprehensive Discharge Medication List: Ambulatory Orders Fluoxetine HCl [Prozac -] 60 mg PO DAILY 09/26/15 Ibuprofen 800 mg PO Q8H PRN #20 tablet 10/03/18 acetaZOLAMIDE [Diamox -] 250 mg PO ASDIR 10/03/18 Amoxicillin/Potassium Clav [Augmentin 875-125 Tablet] 1 each PO BID #14 tablet 10/09/18 This patient is new to me today: Yes Date on this admission: 10/09/18 Emergency Visit: Yes ED Registration Date: 10/09/18 Care time: The patient presented to the Emergency Department on the above date and was hospitalized for further evaluation of their emergent condition. Critical Care patient: No - Discharge Referral Referred to [facility] Med P.C.: No
== END 2018-10-09 16:19 | disposition home or self-care (01) | DRG 761 ==
LOC: JERFT 19:49 → JERBED 10-09 01:48 → J7W 10-09 06:21
PROVIDERS: ADMIT Internal Medicine; ATTEND Internal Medicine
DX: N75.0 Cyst of Bartholin's gland (principal); R31.29 Other microscopic hematuria; D47.3 Essential (hemorrhagic) thrombocythemia; E66.9 Obesity, unspecified; Z68.31 Body mass index [BMI] 31.0-31.9, adult; J45.909 Unspecified asthma, uncomplicated; J44.9 Chronic obstructive pulmonary disease, unspecified; F41.9 Anxiety disorder, unspecified
CPT/HCPCS: 36415; 80053; 81003; 82803; 83036; 83605; 83735; 84100; 84484; 85025; 85610; 85730; 87040; 87086; 87389; 93005; 93010; 99285-25; J0131; J7030

== ENCOUNTER 2018-12-28 20:41 | Emergency (ER) | payer BC, OTHER ==
--- NOTE | 2018-12-28 20:51 | PDOC ---
Rapid Medical Evaluation Medical Evaluation: Allergies Allergy/AdvReac Type Severity Reaction Status Date / Time amoxicillin [Amoxicillin] AdvReac Mild Verified 10/08/18 20:55 Penicillins AdvReac Mild Verified 10/08/18 20:55 12/28/18 20:45 I have performed a brief in-person evaluation of this patient. The patient presents with a chief complaint of: Multiple complaints: L foot pain. Also reports vaginal discharge and itching. H/o cervical s/p excision, COPD, quit cigarettes, vapes now per pt Pertinent physical exam findings: stable and in NAD I have ordered the following:ua/preg/std on ua The patient will proceed to the ED for further evaluation. 12/28/18 20:52 Discharge Disposition - Diagnosis Vaginal discharge, Left foot pain - Referrals - Patient Instructions - Post Discharge Activity
[2018-12-28 20:55] VITALS: BP 120/66; PULSE 103; TEMP 98.2; BMI 29.2
--- NOTE | 2018-12-28 23:03 | PDOC ---
History of Present Illness <Milagros Light - Last Filed: 12/29/18 00:58> - General History Source: Patient - History of Present Illness Initial Comments: 12/29/18 01:06 The patient is a 38 year old female with no significant reported PMH who presents to the ED c/o vaginal discharge and skin rash. Patient reports the discharge is whitish and is mostly around her inner vagina. States the discharge makes her itch. No fevers/chills, two episodes of dysuria without hematuria earlier this week. Is sexually active with one partner. Patient also c/o 2 month h/o red rash on her B/L UE and LE that are puritic. States she has a referral to a nursing services manager. Allergy: Penicillin, Amoxicillin <Fariba Triana - Last Filed: 12/29/18 04:53> - General Chief Complaint: Vaginal Sxs Stated Complaint: RASH TO FEET BILAT Time Seen by Provider: 12/28/18 20:49 Past History <Milagros Light - Last Filed: 12/29/18 00:58> - Past Medical History Anemia: No Asthma: Yes Cancer: Yes (CERVICAL 2007 2012 ) Cardiac Disorders: No CVA: No COPD: Yes (NON- O2 DEP) CHF: No DVT: No Dementia: No Diabetes: No GI Disorders: No Disorders: No HTN: No Hypercholesterolemia: No Kidney Stones: No Liver Disease: No Psychiatric Problems: Yes (anxiety) Seizures: Yes (09/06/16) Thyroid Disease: No - Surgical History Abdominal Surgery: Yes (HERNIA 2012) Appendectomy: No Cardiac Surgery: No Cholecystectomy: No Lung Surgery: No Neurologic Surgery: No Orthopedic Surgery: No - Reproductive History PID: No - Immunization History Immunization Up to Date: Yes - Suicide/Smoking/Psychosocial Hx Smoking Status: Yes Smoking History: Current some day smoker Have you smoked in the past 12 months: Yes Number of Cigarettes Smoked Daily: 0 (Now vapes x 1year) Cigars Per Day: 0 Information on smoking cessation initiated: No 'Breaking Loose' booklet given: 04/06/17 Hx Alcohol Use: No Drug/Substance Use Hx: No Substance Use Type: None Hx Substance Use Treatment: Yes <Fariba Triana - Last Filed: 12/29/18 04:53> - Past Medical History Allergies/Adverse Reactions: Allergies Allergy/AdvReac Type Severity Reaction Status Date / Time amoxicillin [Amoxicillin] AdvReac Mild Verified 12/28/18 20:51 Penicillins AdvReac Mild Verified 12/28/18 20:51 Home Medications: Ambulatory Orders Fluoxetine HCl [Prozac -] 60 mg PO DAILY 09/26/15 Ibuprofen 800 mg PO Q8H PRN #20 tablet 10/03/18 acetaZOLAMIDE [Diamox -] 250 mg PO ASDIR 10/03/18 Amoxicillin/Potassium Clav [Augmentin 875-125 Tablet] 1 each PO BID #14 tablet 10/09/18 Fluconazole [Diflucan] 150 mg PO ONCE #1 tablet 12/29/18 Sulfamethoxazole/Trimethoprim [Bactrim Ds -] 1 tab PO BID #14 tablet 12/29/18 Review of Systems - Review of Systems Constitutional: No: Chills, Fever Respiratory: No: Cough, Shortness of Breath Cardiac (ROS): No: Chest Pain, Lightheadedness, Palpitations, Syncope ABD/GI: No: Constipated, Diarrhea, Nausea, Vomiting : Yes: Dysuria, Other (vulvar discharge) <Fariba Triana - Last Filed: 12/29/18 04:53> *Physical Exam - Vital Signs Last Vital Signs Temp Pulse Resp BP Pulse Ox 98.2 F 103 H 17 120/66 100 12/28/18 20:51 12/28/18 20:51 12/28/18 20:51 12/28/18 20:51 12/28/18 20:51 <Milagros Light - Last Filed: 12/29/18 00:58> - Vital Signs Last Vital Signs Temp Pulse Resp BP Pulse Ox 98.2 F 103 H 17 120/66 100 12/28/18 20:51 12/28/18 20:51 12/28/18 20:51 12/28/18 20:51 12/28/18 20:51 - Physical Exam General Appearance: Yes: Nourished, Appropriately Dressed HEENT: positive: Normal Voice, Hearing Grossly Normal Neck: positive: Trachea midline, Supple Female Pelvic Exam: positive: normal external exam, cervical os closed, other ( whitish discharge in vaginal vault c/w vaginal yeast infection; Bimanual exam: no CMT, non-palpable adnexa) Extremity: positive: Normal Capillary Refill, Normal Inspection Integumentary: positive: Normal Color, Dry, Warm, Other (Pinpoint macular lesions associated with hair follicles c/w folliculitis) Neurologic: positive: [place] II-XII NML intact, Fully Oriented, Alert <Fariba Triana - Last Filed: 12/29/18 04:53> ED Treatment Course - ADDITIONAL ORDERS Additional order review: Laboratory Results 12/29/18 12/29/18 00:00 00:00 Urine Color Yellow Urine Appearance Clear Urine pH 5.5 Ur Specific [place] >= 1.030 Urine Protein Negative Urine Glucose (UA) Negative Urine Ketones Negative Urine Blood Negative Urine Nitrite Negative Urine Bilirubin Negative Urine Urobilinogen 0.2 Ur Leukocyte Esterase Negative Urine HCG, Qual Negative <Milagros Light - Last Filed: 12/29/18 00:58> Medical Decision Making - Medical Decision Making 12/29/18 01:32 38 y/o female with vaginal discharge - physical exam c/w vaginal yeast infection. Also c/o "rash" which is most likely folliculitis as patient shaves her legs. Will give OTD of Diflucan and outpatient prescription for Bactrim for skin/soft tissue as well as well as possible UTI. As patient's clinical picture is less concerning for G/C will refrain from prophylatic treatment. Patient discharged home with return precautions, counseled she will be called if her G/C results are positive Clinical Impression: Candidiasis, Folliculitis I discussed the physical exam findings, ancillary test results and final diagnoses with the patient. I answered all of the patient's questions. The patient was satisfied with the care received and felt comfortable with the discharge plan and treatment plan. The patient will return to the Emergency Department with any new, persistent or worsening symptoms. <Fariba Triana - Last Filed: 12/29/18 04:53> *DC/Admit/Observation/Transfer - Discharge Dispostion Decision to Admit order: No <Milagros Light - Last Filed: 12/29/18 00:58> - Discharge Dispostion Decision to Admit order: No <Fariba Triana - Last Filed: 12/29/18 04:53> Diagnosis at time of Disposition: Vaginal discharge, Left foot pain, Folliculitis - Discharge Dispostion Disposition: HOME Condition at time of disposition: Stable - Prescriptions Prescriptions: Fluconazole [Diflucan] 150 mg PO ONCE #1 tablet Sulfamethoxazole/Trimethoprim [Bactrim Ds -] 1 tab PO BID #14 tablet - Referrals Referrals: Marilin Nugent [Primary Care Provider] - - Patient Instructions Printed Discharge Instructions: DI for Vaginal Yeast Infection, DI for Folliculitis Additional Instructions: We have sent a prescription to your pharmacy please take the entire antibiotic course. Follow up with your primary care doctor in 3 days. Your care is not complete until you are evaluated by your primary care doctor. You can call the Emergency Department in 72 hours for your chlamydia/gonorrhea test results Return to the Emergency Department for any new/worsening/concerning symptoms. - Post Discharge Activity
--- NOTE | 2018-12-28 23:34 | PDOC ---
Attending Attestation - Resident Resident Name: Fariba Triana - ED Attending Attestation I have performed the following: I have examined & evaluated the patient, The case was reviewed & discussed with the resident, I agree w/resident's findings & plan - HPI HPI: 12/29/18 00:57 Pt comes with a red papular rash that she seems to be spreading. Looks like a folliculitis. She also complains of a vag yeast infection. She has had yeast infections in the past. - Physicial Exam PE: 12/29/18 00:57 Agree with resident exam. - Medical Decision Making 12/29/18 00:57 Home with bactrim DS for folliculitis; first dose given in the ER; home with 2nd dose of diflucan to be taken in a week after abx for the folliculitis.
[2018-12-29] MEDS ORDERED: FLUCONAZOLE 150 MG TABLET PO ONE ×2 (00:38→00:55)
[2018-12-29 00:47] LABS: PH,URINE 5.5 (5.0-8.0); URINE APPEARANCE Clear; URINE BILIRUBIN Negative (NEGATIVE); URINE COLOR Yellow; URINE GLUCOSE (UA) Negative (NEGATIVE); URINE KETONE Negative (NEGATIVE); URINE LEUK ESTERASE Negative (NEGATIVE); URINE NITRITE Negative (NEGATIVE); URINE PROTEIN Negative (NEGATIVE); URINE UROBILINOGEN 0.2 mg/dL (0.2-1.0)
[2018-12-29] MEDS ORDERED: SULFAMETHOXAZOLE/TRIMETHOPRIM 800MG/160MG D.S. TABLET PO ONE (00:55)
[2018-12-29] MEDS ORDERED: SULFAMETHOXAZOLE/TRIMETHOPRIM 800MG/160MG D.S. TABLET ONE (01:09)
[2018-12-29] MEDS ORDERED: FLUCONAZOLE 100 MG TABLET (UD) ONE (01:09)
[2018-12-29] MEDS ORDERED: FLUCONAZOLE 100 MG TABLET (UD) PO ONE (01:10)
== END 2018-12-29 01:13 | disposition home or self-care (01) ==
LOC: JER 20:41 → JERFT 20:41 → JER 12-29 01:13
DX: N89.8 Other specified noninflammatory disorders of vagina (principal); M79.672 Pain in left foot; L73.9 Follicular disorder, unspecified
CPT/HCPCS: 36415; 81003; 84703; 87086; 87491; 87591; 99281-25

== ENCOUNTER 2024-01-24 23:33 | Emergency (ER) | payer BC ==
[2024-01-24 23:41] VITALS: BP 124/89; PULSE 103; RESP 20; BMI 36.8
[2024-01-25] MEDS ORDERED: KETOROLAC TROMETHAMINE 15 MG/ML VIAL ONE (00:04)
[2024-01-25] MEDS ORDERED: LIDOCAINE 4% PATCH TP ONE (00:04)
[2024-01-25] MEDS: ACETAMINOPHEN 500 MG TABLET (FP) PO ONE (00:07)
[2024-01-25] MEDS: LIDOCAINE 5% TOPICAL PATCH TP ONE (00:07)
[2024-01-25] MEDS: KETOROLAC TROMETHAMINE 15 MG/ML VIAL IM ONE (00:07)
[2024-01-25] MEDS ORDERED: LIDOCAINE PATCH REMOVAL MC SCH (22:00)
== END 2024-01-25 00:11 | disposition home or self-care (01) ==
LOC: JER 23:33
PROC: 3E0133Z Introduction of Anti-inflammatory into Subcutaneous Tissue, Percutaneous Approach (ICD-10-PCS; principal; 2024-01-25)
DX: M79.601 Pain in right arm (principal); R20.2 Paresthesia of skin
CPT/HCPCS: 99284-25